=== PATIENT | male | born 1970 | race Caucasian/White ===

== ENCOUNTER → 2017-11-07 | Day surgery (SDC) | payer MEDICARE ==
[~2017-11-07] VITALS: Ht 177.8 cm; Wt 93.9 kg
[~2017-11-07] MED LIST: ACETAMINOPHEN PO; ACETAMINOPHEN325 M2 PO; AMBIEN10 MG PO; AMBIEN5 MG PO; ARTIFICIAL TEAR15 M1 OU; ATIVAN0.5 MG PO; BACLOFEN10 MG PO; BACTROBAN OINT22 GM NAS; BELSOMRA5 MG PO; BISACODYL10 MG; CELEBREX100 MG PO; CLARITIN10 MG PO; CLEOCIN HCL300 MG PO; COLACE100 MG/10; COUMADIN3 M1 PO; COUMADIN6 M1 PO; COUMADIN6 MG PO; DANTRIUM50 MG PO; DEPAKOTE125 MG PO; DILANTIN KAPSE100 MG PEG; DILANTIN100 MG PO; DILANTIN100 MG/4 M PO; DOXYCYCLINE MO100 MG PO; DULCOLAX10 MG R; DUONEB 3 MG/3 ML3 M1 INH; DUONEB 3 MG/3 ML3 M1 NEB; DURAGESIC75 MCG/HR TD; Duoneb 3ML 3 MG/3 ML INH; EFFEXOR75 MG PO; EXEL13.31 TD; FENTANYL TR25 MCG/HR TD; FENTANYL TR50 MCG/HR TD; FLEXERIL10 MG PO; FLORASTOR; FLORASTOR250 MG PO; HYDROCODONE BIT1 T11 PO; KEPPRA250 MG PO; LACRI LUBE1 OIN PEG; LASIX20 MG PO; LASIX40 MG PO; LEVOTHROID0.025 MG PO; LIORESAL10 MG PO; LOPRESSOR PO; Lopressor25 MG PO; MACROBID100 M1 PEG; MIRALAX POWDER17 G1 PO; MIRTAZAPINE15 M2 PO; MOM30 M1; Mysoline50 MG PO; NATURE'S BLEND F1 MG PO; NEXIUM40 MG PO; NORCO 325 MG-7.1 TAB PO; PEPCID20 MG PO; PHENERGAN25 M1 PO; PHENERGAN25 MG/ML IJ; POTASSIUM CHLO20 ME4 PO; PROTONIX40 MG PO; RANITIDINE HCL150 M1 PO; RISPERDAL0.5 MG PO; RISPERDAL2 M1 PO; RITALIN10 MG; ROCEPHIN1 GM IJ; SENOKOT8.6 MG PO; SILAPAP; SYNTHROID0.025 MG PO; TOPROL XL25 MG PO; TORADOL10 MG PO; TYLENOL650 M1 PO; VICODIN 5/500 505 MG; VITAMIN C PO; VITAMIN D50000 IU PO; XANAX0.5 MG PO; ZANTAC150 MG; ZINC SULFATE220 MG PO; ZOLOFT50 MG PO; [UNRECOGNIZED DRUG - OTHER]; [UNRECOGNIZED DRUG - OTHER] OU
--- NOTE | ~2017-11-07 | O ---
[place], [place] OPERATIVE NOTE NAME: BRIANNA VERAS UNIT #: [id number] ROOM: DOCTOR: BLESSING ESTEVEZLAUREN BIRTHDATE: [birth year] DOS: 11/07/2017 INDICATIONS: This patient has had head trauma, status post craniotomy and now dysphagia, unable to swallow and although he is assisted with soft diet in residential and apparently there is difficulties with swallow and choking at times. PAST MEDICAL HISTORY: Status post trauma, otherwise no other systemic illnesses. ALLERGIES: TO BACTRIM, PENICILLIN, ZOFRAN, AND CIPROFLOXACIN. SOCIAL HISTORY: Nonsmoker, nonalcohol consumer. FAMILY HISTORY: Noncontributory. PAST SURGICAL HISTORY: Brain surgery, vein shunt, and ventral hernia repair 8 years ago. PROCEDURE: Today's procedure part of investigation is panendoscopy plus biopsy plus esophageal dilation. PREMEDICATION: Versed and Diprivan. SCOPE: Olympus forward-viewing gastroscope Q10 video. REPORT: After putting the patient in left lateral position and application of lubricant to the scope, the scope was introduced under direct visualization, advanced through the length of esophagus without difficulty. Upper esophageal benign stricture was experienced. Gastric pouch was entered. Small hiatal hernia 2 cm was noticed. Gastritis was noticed photographed. Antral biopsy obtained for H. pylori, duodenal bulb, second and third part within normal limits. The patient was extubated to the proximal gastric pouch. A balloon size 20 was introduced in gastric pouch and in the inflated form was pulled throughout the length of the esophagus, extremely high resistant benign stricture site upper esophagus was experienced. However, we kept the balloon inflated to size 20 and the patient extubated, tolerated procedure well. IMPRESSION: Upper esophageal stricture, status post balloon dilation to size 20, gastritis, status post biopsy. PLAN AND DISCUSSION: This patient is on ranitidine 150 mg b.i.d. He is on Protonix also 40 mg every day. I trust that we do not need H2 manjit in view of the fact the patient is in PPI. We are going to remove the ranitidine from the list and addition of analgesic acid, i.e., extra strength Gaviscon is going to be used 1 at bedtime, antireflux with elevation of the head of the bed, soft diet with miner assistant, to be fed by nursing staff or otherwise assistants and clinical reevaluation. [place], [place] OPERATIVE NOTE NAME: BRIANNA VERAS UNIT #: [id number] ROOM: DOCTOR: BLESSING ESTEVEZ,LAUREN BIRTHDATE: [birth year] LAUREN FUNK MD CM:OPRECORD:OPERATIVE NOTE [id number] ARLEEN FUNK MD 11/07/17 1346 interface
[2017-11-07 10:20] VITALS: BP 111/78
[2017-11-07 11:30] VITALS: BP 109/78
[2017-11-07 11:45] VITALS: BP 120/74
== END | disposition home or self-care (01) ==
LOC: SDC 11-06 14:45
DX: K29.50 Unspecified chronic gastritis without bleeding (principal); K22.2 Esophageal obstruction; Z98.890 Other specified postprocedural states; Z88.8 Allergy status to other drugs, medicaments and biological substances; Z88.0 Allergy status to penicillin; I10 Essential (primary) hypertension; F41.9 Anxiety disorder, unspecified; F32.9 Major depressive disorder, single episode, unspecified; J44.9 Chronic obstructive pulmonary disease, unspecified; Z79.899 Other long term (current) drug therapy

== ENCOUNTER 2017-12-11 08:54 | Inpatient (IN) | payer MEDICARE, OTHER ==
[~2017-12-11] VITALS: Ht 182.9 cm; Wt 105.9 kg
--- NOTE | ~2017-12-11 | WRIGHTHP ---
[place], [place] PATIENT HISTORY AND PHYSICAL EXAM NAME: BRIANNA VERAS [facility] #: [id number] UNIT #: [id number] ROOM: 427 DOCTOR: ARLEEN MONTEIRO MD BIRTHDATE: [birth year] DOS: 12/11/2017 HISTORY OF PRESENT ILLNESS: The patient is 47-year--old, very well known to us. He is a resident of [facility]. He has been getting increasingly weak and tired with more of an obtunded situation. The patient was brought to the emergency room because of hypoxemia and low-grade fever and increased chest congestion. He has had a moist cough. He is unable to cough up any mucus because of his reflux being very poor, but he was again quite sleepy and was difficult to arouse. After being evaluated in the ER, he was admitted. This morning, he is much more awake and alert, almost combative, which is his baseline. His father is with him. As per the father, he seems to be less congested than yesterday. PAST MEDICAL HISTORY: 1. 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 2. CUSTODIAL AIDE shunt placement from history of hydrocephalus. 3. Hypothyroidism. 4. Benign hypertension. 5. Metabolic encephalopathy. 6. Generalized anxiety disorder. MEDICATIONS: He was on were breathing treatments, Tylenol, Xanax, ascorbic acid, baclofen, vitamin D, Depakote, folic acid, Lasix, Galvin, Keppra, levothyroxine, metoprolol, mirtazapine, omeprazole, Dilantin, primidone, Risperdal, Belsomra, fentanyl, Vicodin and rivastigmine. SOCIAL HISTORY: Nonsmoker, is a resident currently of [facility]. He suffers from organic brain syndrome. PHYSICAL EXAMINATION: VITAL SIGNS: Blood pressure is 128/92, pulse 106, respirations 18, temperature 97.6. LUNGS: Diminished breath sounds, scattered wheezes heard bilaterally. HEART: Regular. ABDOMEN: Obese, soft. EXTREMITIES: Trace edema, which is chronic lymphedema. LABORATORY DATA: Phenytoin level is high at 21.0. Valproic acid is low at 25.1. Keppra is normal. WBC count is 4.2, hemoglobin 12.0, hematocrit 26.8, platelets 169. Lactic acid is 1.3. Comprehensive glucose 84, BUN 14, creatinine 0.52. Electrolytes were normal. Chest x-ray showed no pathology. CT of the chest was done after admission showed trace bilateral pleural effusion, diffuse ground glass opacities suggestive of interstitial edema, mucus plugging with a CUSTODIAL AIDE shunt in place with evidence of ____ most likely aspiration. ASSESSMENT AND PLAN: 1. Aspiration pneumonia. The patient is placed on antibiotics. We will ask Dr. Posey to do a bronchoscopy suction of mucus plugs and sent them for culture. 2. Organic brain syndrome. The patient has had a problem with polypharmacy. [place], [place] PATIENT HISTORY AND PHYSICAL EXAM NAME: BRIANNA VERAS UNIT #: [id number] ROOM: 427 DOCTOR: ARLEEN MONTEIRO MD BIRTHDATE: [birth year] Most of his meds will be discontinued and will start anew. 3. History of seizure disorder. I will continue Keppra. We will discontinue Dilantin. He has been taking the Depakote for mood stabilization, which is being discontinued. 4. Hypothyroidism, stable on medicines. 5. Interstitial edema may suggest slight diastolic congestive heart failure. Echocardiogram is ordered. Discussed with the patient's father in detail. ARLEEN MONTEIRO MD CM:HISPHYS:PATIENT HISTORY AND PHYSICAL EXAMINATION [id number] ARLEEN MONTEIRO MD 12/12/17 1032 interface
--- NOTE | ~2017-12-11 | PR ---
[place], [place] PROGRESS NOTE NAME: BRIANNA VERAS [facility] #: [id number] UNIT #: [id number] ROOM: 427 DOCTOR: ARLEEN MONTEIRO MD BIRTHDATE: [birth year] DOS: 12/16/2017 SUBJECTIVE: The patient is about the same, does not have any new changes. OBJECTIVE: VITAL SIGNS: Blood pressure is 130/77, pulse of 97, respirations 16, temperature 98.8. LUNGS: Diminished breath sounds. HEART: Regular, tachycardic. ABDOMEN: Obese. EXTREMITIES: Without any edema, contracted extremities. ASSESSMENT AND PLAN: 1. 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 No new changes. 2. Sputum cultures with Proteus mirabilis, on Levaquin. We can switch to p.o. and discharge him back. 3. Aspiration pneumonia and failed modified barium swallow for which the patient underwent PEG tube and is tolerating it. The patient is relatively stable. The plan [facility]. ARLEEN MONTEIRO MD CM:PNTRANS [id number] ARLEEN MONTEIRO MD 12/17/17 0601 interface
--- NOTE | ~2017-12-11 | PROC NOTE ---
[place], [place] PROCEDURE NOTE NAME: BRIANNA VERAS UNIT #: [id number] ROOM: 427 DOCTOR: HUMA MORTON BIRTHDATE: [birth year] DOS: 12/12/2017 MODIFIED BARIUM SWALLOW LOCATION: [facility], room 427, bed 1. ORDERING PHYSICIAN: Dr. Arenas. RADIOLOGIST: Dr. Hernandez. BACKGROUND INFORMATION: A 47-year-old male was seen for modified barium swallow. This test was ordered to rule out aspiration. [facility] and diagnosed with pneumonia, aspiration is suspected. Further medical history includes traumatic brain injury approximately 8 years ago, seizures, anxiety, depression, GERD, and UTI. The patient was sent to the emergency room after experiencing lethargy and cough at the [facility]. Reports indicate that patient had been eating a soft diet at the [facility]. He also underwent esophageal dilation about 3 weeks ago. The patient is currently n.p.o. For today's assessment, he was alert and agitated. He was restless and with frequent tremor. Clinician attempted to calm the patient explaining what would occur during the procedure. It is uncertain if the patient understood this information or not. This patient is nonverbal and unable to follow commands. METHODS AND MATERIALS USED FOR THE EXAM: The patient was positioned in the lateral plane and the exam was attempted under fluoroscopy. Applesauce mixed with barium was attempted. ORAL PHASE: This phase of the swallow was unable to be assessed due to patient's refusal of p.o. intake. Encouragement was given. The patient refused and was becoming combative. The patient did not accept presentations given; therefore, test was terminated. PHARYNGEAL PHASE: Unable to assess. IMPRESSION AND RECOMMENDATIONS: The patient refused any oral intake at this time. When seen this morning during a bedside swallowing evaluation, the patient again refused any presentation from the clinician. The patient's father was present and attempted to feed the patient. With encouragement, he did accept a couple of bites from his father, however, was not noted to be swallowing anything given. It was recommended that feeding stop at this point. Due to current status, n.p.o. is recommended for safety. Followup therapy is recommended for continued attempts to assess swallowing safety. Results and recommendations were shared with the patient's nurse who verbalized understanding. Thank you very much for this referral. Should you have any questions regarding this patient, please contact the speech pathologist at [phone]. [place], [place] PROCEDURE NOTE NAME: BRIANNA VERAS UNIT #: [id number] ROOM: [facility] DOCTOR: HUMA MORTON BIRTHDATE: [birth year] HUMA MORTON CM:PROCNOTE:PROCEDURE NOTE [id number] HUMA MORTON
--- NOTE | ~2017-12-11 | PR ---
[place], [place] PROGRESS NOTE NAME: BRIANNA VERAS [facility] #: [id number] UNIT #: [id number] ROOM: 427 DOCTOR: ARLEEN MONTEIRO MD BIRTHDATE: [birth year] DOS: 12/13/2017 SUBJECTIVE: The patient is seen in the OR, slightly restless and tachycardic. He has been n.p.o. for the procedure and has not received his beta blockers. OBJECTIVE: VITAL SIGNS: Graphic trend shows a pressure of 130/62, pulse of 118, respirations 20, temperature 99.0, T-max of 99.8. LUNGS: Diminished breath sounds, few scattered wheezes. HEART: Tachycardic. ABDOMEN: Obese, soft. EXTREMITIES: Without much edema today. LABORATORY DATA: WBC count is 8.9, hemoglobin 13.1, hematocrit , platelets 217. BMP: Glucose 90, BUN 11, creatinine 0.72. Electrolytes were normal. MRSA of the nares was negative. Thyroid function test was normal. ASSESSMENT AND PLAN: 1. Aspiration pneumonia. Awaiting a bronchoscopy. 2. Tachycardia, most likely from anxiety, given the Lopressor dose this morning since he has not received his Lopressor for more than 24 hours. 3. Failed modified barium swallow. We will discuss with the patient's father about PEG tube placement because he is a high risk for further aspiration. 4. History of traumatic brain injury with organic brain syndrome and MRI will be done to make sure that the GARMENT TAG STRINGER shunt is functioning well. ARLEEN MONTEIRO MD CM:PNTRANS 1 [phone] ARLEEN MONTEIRO MD 12/13/17 1226 interface
--- NOTE | ~2017-12-11 | PR ---
[place], [place] PROGRESS NOTE NAME: BRIANNA VERAS UNIT #: [id number] ROOM: 427 DOCTOR: CESAR AN MD,MATEUS BIRTHDATE: [birth year] DOS: 12/13/2017 SUBJECTIVE: The patient was noted essentially the same with chest congestion. Mentally patient noted awake, but does not follow vocal commands with history of traumatic brain injury. He has not been noted any hemodynamic instability, has not been noted with symptoms of diarrhea as well. Remaining systems for the patient could not review this patient because of the current neurologic status. He is kept n.p.o. past midnight. Bronchoscopy to be done today. OBJECTIVE: VITAL SIGNS: Shows normal temperature, respiratory rate 14, heart rate 110, blood pressure of 114/77-124/89. Pulse oxygen saturation recorded on 3 liters nasal cannula 93% saturation. HEENT: Moderate obesity. Head was atraumatic. Eyes nonicterus or tracheostomy scar noted at base of the neck. CARDIOVASCULAR: S1, S2 is audible. LUNGS: The patient noted with [id number] decreased breath sounds bilaterally. ABDOMEN: Soft, nontender. EXTREMITIES: The patient without any edema. MUSCULOSKELETAL: No acute deformities. VISIBLE SKIN: No lesions or rashes. CENTRAL NERVOUS SYSTEM: Change in mental status, traumatic brain injury and bedbound status. LABORATORY DATA: Blood culture on showed no bacterial growths. The BMP for this patient that were done today was noted essentially completely normal. CBC this morning: WBC count normal, hemoglobin 13.1, platelet count was normal. IMPRESSION: 1. The patient who has been currently noted with findings of acute pneumonia with the mucus impaction of the airways, especially right lower lobe. 2. Chronic traumatic brain injury. The patient is bedbound status. 3. Metabolic alkalosis which is chronic as well, mostly second hypoventilation would be considered. 4. History of hypothyroidism. PLAN OF TREATMENT: Proceed with the bronchoscopy as planned. Any changes or modification of treatment if necessary will be done after the bronchoscopy. Other supportive therapy, plan of management to be continued as well. Usual treatment, all other care and therapies. Supportive plan of management as well. [place], [place] PROGRESS NOTE NAME: BRIANNA VERAS UNIT #: [id number] ROOM: 427 DOCTOR: MATEUS HERRERA MD BIRTHDATE: [birth year] MATEUS GUERRERO MD CM:PNTRANS [phone] MATEUS AN MD 12/13/17 1511 interface
--- NOTE | ~2017-12-11 | PR ---
[place], [place] PROGRESS NOTE NAME: BRIANNA VERAS UNIT #: [id number] ROOM: 427 DOCTOR: MATEUS HERRERA MD BIRTHDATE: [birth year] DOS: 12/16/2017 PULMONARY PROGRESS NOTE SUBJECTIVE: He has noted comfortable without acute distress. He was planned for possible discharge today. He has not been noted any symptoms of hemodynamic instability. The patient has not been noted any ongoing acute other changes at the present time. The patient noted awake and alert this morning. PHYSICAL EXAMINATION: VITAL SIGNS: Normal temperature, respiratory rate of 17, heart rate of 118, blood pressure 110/80, and pulse oxygen saturation on 2 liters nasal cannula 93% saturation. HEENT: On examination, head was atraumatic. Eyes nonicterus. NECK: Supple. CARDIOVASCULAR: S1, S2 audible. LUNGS: The patient was noted without any acute abnormality. NECK: Supple. CARDIOVASCULAR: S1, S2 audible. LUNGS: The patient noted without any wheeze or crackles. ABDOMEN: Soft, nontender. EXTREMITIES: Without any acute edema. CENTRAL NERVOUS SYSTEM: Remains unchanged. IMPRESSION: 1. The patient with resolving acute pneumonia, gram-negative infection with aspiration, status post bronchoscopy. 2. 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 PLAN OF MANAGEMENT: The patient could be discharged home on oral medication based on the sensitivity results. Other supportive plan of management to be continued as well. Possibility for the patient would be [facility] the [facility] management of tracheal stenosis. [place], [place] PROGRESS NOTE NAME: BRIANNA VERAS UNIT #: [id number] ROOM: 427 DOCTOR: MATEUS HERRERA MD BIRTHDATE: [birth year] MATEUS GUERRERO MD CM:PNTRANS 1331 0125 MATEUS AN MD 12/17/17 0124 interface
--- NOTE | ~2017-12-11 | CON ---
[place], [place] REPORT OF CONSULTATION NAME: BRIANNA VERAS [facility] #: [id number] UNIT #: [id number] ROOM: 427 DOCTOR: MATEUS HERRERA MD BIRTHDATE: [birth year] DOS: 12/12/2017 CONSULTATION REQUESTED BY: Dr. Karlee Arenas. REASON FOR CONSULTATION: For assessment of possible bronchoscopy. HISTORY OF PRESENT ILLNESS: This is 47-year-old white male, who was seen on 12/12/2017. The patient has been noted history of long-term assisted resident with history of traumatic brain injury. The patient has been admitted in the hospital. The patient has been noted progressive weakness and fatigue with mental status changes. He has been brought to the Emergency Room and noted with acute hypoxia with increased chest congestion and low grade fever. The coughing has been noted moist. The patient is unable to give any history at this time. The history was obtained from review of medical records by Dr. Karlee Arenas and also the medical record of the patient, also rather discussing the case with the patient's father. At this time, the patient has been in the hospital, at the time of assessment noted with chest congestion. The patient unable to expectorate any sputum as well. REVIEW OF SYSTEMS: Could not be completed as the patient was noted with change in mental status, which is chronic with history of traumatic brain injury. PAST MEDICAL HISTORY: 1. History of traumatic brain injury. 2. Seizures. 3. History of hydrocephalus, PRODUCER ARBORIST MANAGER shunt in place. 4. Hypothyroidism. 5. Moderate obesity. 6. Benign essential hypertension. 7. Generalized anxiety disorder. 8. History of deep venous thrombosis, previously. 9. Muscle wasting. 10. Atrophy. 11. History of hypothyroidism. SOCIAL HISTORY: The patient noted nonsmoker lifetime. There is no history of alcohol use, illicit drug use reported previously. FAMILY HISTORY: Noncontributory. PAST SURGICAL HISTORY: 1. Reported as a vasectomy. 2. Surgery on the right knee. 3. Hernia repair. CURRENT MEDICATION: Administered noted use of DuoNeb with the nebulizer, Exelon patch, zinc sulfate, folic acid, vitamin D, omeprazole, primidone, Remeron, metoprolol tartrate, levothyroxine, Keppra, Lasix, baclofen, Rocephin and Levaquin. [place], [place] REPORT OF CONSULTATION NAME: BRIANNA VERAS UNIT #: [id number] ROOM: 427 DOCTOR: CESAR AN MD,MATEUS BIRTHDATE: [birth year] DRUG ALLERGY HISTORY: Noted with allergy: 1. PENICILLIN. 2. SULFA DRUGS. 3. CIPROFLOXACIN. 4. ZOFRAN. PHYSICAL EXAMINATION: GENERAL: The patient is a 47-year-old male, who has been noted with chest congestion, but no distress, noted awake. VITAL SIGNS: Height of 6 feet, weight of 233 pounds, BMI 31.6. The patient was noted nonverbal. VITAL SIGNS: Normal temperature, respiratory rate 18-20, heart rate 94-106, blood pressure 128/92-140/85. The pulse oxygen saturation on room air was 91% saturation. HEENT: The patient with moderate obesity. Head was atraumatic. Eyes nonicterus. CARDIOVASCULAR: S1, S2 is audible. LUNGS: The patient noted with moderate reduction of the breath sounds. The patient was noted with rhonchorous breathing. ABDOMEN: Soft, nontender. EXTREMITIES: The patient was noted with partial contracture. SKIN: Visible skin, no lesions or rashes. CENTRAL NERVOUS SYSTEM: The patient could not be performed because of the current neurologic problems. LABORATORY DATA: Keppra level was done as an outpatient normal at 20.6. CBC, yesterday on admission was noted as WBC count normal, hemoglobin 13.1, hematocrit 39.6, platelet count were normal. The CMP 522. Normal BUN and creatinine. CO2 33. Chest x-ray, limited view because of portable access without any acute pulmonary infiltration visible. CT scan of the chest, which was done without contrast ordered by Dr. Karlee Arenas, was reviewed shows interstitial edema was also noted with basilar area of infiltration with possibility of mucus impaction of the major airways in the lower lungs. IMPRESSION: 1. The patient will be currently admitted to the hospital. The patient was suspected acute pneumonia with mucous impaction major airways retained secretions, inability to expectorate a current neurologic issues. 2. History of chronic traumatic brain injury for the patient as well. 3. Metabolic alkalosis which appeared to be chronic. 4. History of hypothyroidism and other medical problems as previously reported in the past history. PLAN OF TREATMENT: Continuation of bronchodilators, oxygen supplementation and other medical treatment. The bronchoscopy was planned to be done tomorrow. Risk and benefits were discussed with the patient's father and the consent was obtained for the bronchoscopy. N.p.o. past midnight status will be achieved. Additional treatment changes to be suggested for the patient based on progression of the illness. Usual care, other supportive therapy, plan of management and treatments. [place], [place] REPORT OF CONSULTATION NAME: BRIANNA VERAS UNIT #: [id number] ROOM: [facility] DOCTOR: MATEUS HERRERA MD BIRTHDATE: [birth year] MATEUS GUERRERO MD CM:CONSTR:REPORT OF CONSULTATION 1705 12/13/17 0405 interface
--- NOTE | ~2017-12-11 | EKG ---
[place], [place] ELECTROCARDIOGRAM REPORT NAME: BRIANNA VERAS UNIT #: [id number] ROOM: 427 DOCTOR: CESAR AN MD,MATEUS BIRTHDATE: [birth year] DOS: 12/11/2017 ELECTROCARDIOGRAM REPORT TIME: 02:23 p.m. The electrocardiogram shows evidence of mild sinus tachycardia, heart rate of 107 beats per minute. MATEUS GUERRERO MD CM:EKGRPT:ELECTROCARDIOGRAM REPORT 1435 1449 MATEUS AN MD
--- NOTE | ~2017-12-11 | PR ---
[place], [place] PROGRESS NOTE NAME: BRIANNA VERAS [facility] #: [id number] UNIT #: [id number] ROOM: 427 DOCTOR: CSEAR AN MD,MATEUS BIRTHDATE: [birth year] DOS: 12/15/2017 SUBJECTIVE: The patient has been continued on the current plan of treatment. Remains stable without any excessive coughing, sputum expectoration or any chest pain or other symptoms were reported. The patient orally was noted nonverbal, has not been noted any hemodynamic instability. He had not been noted any symptoms of any diarrhea. The review of systems could not be performed due to the patient's current neurologic status. The patient with past traumatic brain injury, inability to communicate verbally. He was comfortably resting at this time on the bed. PHYSICAL EXAMINATION: VITAL SIGNS: The patient shows temperature noted as normal, respiratory rate of 18, heart rate 72, blood pressure 129/77-109/73. Intake for the patient recorded ____ 150 mL without Bee catheter. Pulse ox saturation is 3 liters nasal cannula was 92% saturation. HEENT: Moderate obese. Head was atraumatic. Eyes nonicterus. CARDIOVASCULAR: S1, S2 audible. LUNGS: Without any wheezing or crackles at the present time. ABDOMEN: Soft, nontender. EXTREMITIES: The patient noted chronic obesity. MUSCULOSKELETAL: The patient without any acute deformities. SKIN: No lesions or rashes. GENITOURINARY: Chronic traumatic brain injury. LABORATORY DATA: BMP this morning: BUN normal, creatinine was normal, sodium 146, and potassium 3.3. Culture of the bronchial washing was noted with evidence of Proteus mirabilis, which was sensitive to multiple antibiotics for the patient and only resistant noted tetracycline. Chest x-ray of the patient that was done this morning reviewed does not show any acute pulmonary abnormalities. IMPRESSION: 1. The patient who has been currently noted with chronic traumatic brain injury with present change in mental status, status post bronchoscopy for the patient as well. 2. Acute tracheobronchitis. The patient was also noted with Proteus mirabilis. PLAN OF MANAGEMENT: Discontinuation of the IV Rocephin and continuation of the Levaquin for the patient possibly in another 5 days to complete the therapy for acute tracheobronchitis. Clinically, the patient has been improving as well. Usual care. Other supportive plan of management and treatment. Plan of care. [place], [place] PROGRESS NOTE NAME: BRIANNA VERAS UNIT #: [id number] ROOM: 427 DOCTOR: MATEUS HERRERA MD BIRTHDATE: [birth year] MATEUS GUERRERO MD CM:PNDIANA 1522 [id number] MATEUS AN MD 12/15/17 1755 interface
--- NOTE | ~2017-12-11 | PR ---
[place], [place] [facility]ESS NOTE [id number] UN[facility] #: [id number] ROOM: 427 DOCTOR: ARLENE MONTEIRO MD BIRTHDATE: [birth year] DOS: SUBJECTIVE: The patient is about the same. His eyes are wide open. He follows few but otherwise does not respond. OBJECTIVE: VITAL SIGNS: Graphic trend shows pressure 115/79, pulse of 90, respirations 18, temperature 98.0, T-max of 100.4 at 1600 yesterday. LUNGS: Diminished breath sounds, some rhonchi in upper chest noted. HEART: Regular. ABDOMEN: Obese. PEG in place. EXTREMITIES: Without any edema. CT of the neck does not show any abnormalities. 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 ASSESSMENT AND PLAN: 1. Aspiration pneumonia, status post PEG tube placement, currently on feeding, tolerating it. 2. Hypokalemia. Supplementation will be ordered. Add water to the PEG. 3. Bronchoscopy cultures revealed Proteus mirabilis, which is sensitive to Rocephin and ____ which he is already on. His IV site infiltrated. We will place a PICC line this morning. The [facility] 4. Organic brain syndrome with agitation. Risperdal will be restarted. ARLEEN MONTEIRO MD CM:PNTRANS [id number] ARLEEN MONTEIRO MD 12/15/17 1125 interface
--- NOTE | ~2017-12-11 | PR ---
[place], [place] PROGRESS NOTE NAME: BRIANNA VERAS UNIT #: [id number] ROOM: 427 DOCTOR: ARLEEN MONTEIRO MD BIRTHDATE: [birth year] DOS: SUBJECTIVE: The patient is agitated this morning because he just came back from the CAT scan. He is not having any new problems. OBJECTIVE: VITAL SIGNS: Graphic trend shows a pressure of 130/80, pulse of 90, respirations 18, temperature 99.5. T-max was 100.7. LUNGS: Diminished breath sounds, fairly clear. HEART: Regular. ABDOMEN: Obese, soft. EXTREMITIES: Trace edema. LABORATORY DATA: Urine draining clear. Routine culture of the bronch specimen showed moderate gram-negative bacteria. His blood culture shows no bacterial growth. ASSESSMENT AND PLAN: 1. The patient with aspiration pneumonia, on IV antibiotics, awaiting completion of the sputum culture and then we will decide on changes in antibiotic regimen. 2. The patient is having difficulty swallowing. A CT of the neck is ordered, but he is scheduled for a PEG tube placement. 3. 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 We will restart some of his old medications. ARLEEN MONTEIRO MD CM:PNDIANA [phone] ARLEEN MONTEIRO MD 12/14/17 1646 interface
--- NOTE | ~2017-12-11 | PR ---
[place], [place] PROGRESS NOTE [id number] UNIT #: [id number] ROOM: 427 DOCTOR: CESAR AN MD,MATEUS BIRTHDATE: [birth year] DOS: 12/14/2017 PULMONARY PROGRESS NOTE SUBJECTIVE: He has been noted comfortable at this time, resting on the bed without any acute distress. The patient has not been noted any further symptoms of cough after bronchoscopy. He had not been noted any symptoms of hemodynamic instability, tachycardia. The patient noted awake and noted expressive aphasia. The patient's father was present in the room with the patient as well. The bronchoscopy resulted in reduction of coughing and chest congestion. REVIEW OF SYSTEMS: Could not be completed. PHYSICAL EXAMINATION: VITAL SIGNS: The temperature noted low grade 100.2 degrees Fahrenheit, normal temperature, respiratory rate of 16-17, heart rate of 94-96, blood pressure 110/55-97/76. The pulse oxygen saturation on 2 liters nasal cannula 94% saturation recorded. HEENT: Moderate obesity. Head was atraumatic. Eyes nonicterus. NECK: Previous tracheostomy scar noted in the neck. CARDIOVASCULAR: S1, S2 audible. LUNGS: The patient was noted without any wheezing or crackles today. ABDOMEN: Soft, nontender. Bowel sounds present. EXTREMITIES: Without any acute edema. CENTRAL NERVOUS SYSTEM: Unchanged with a traumatic brain injury. VISIBLE SKIN: No lesions or rashes. MUSCULOSKELETAL SYMPTOMS: Without any acute deformities. LABORATORY DATA: CT scan of the neck, which was ordered for the patient yesterday does not include the part of trachea. So, the examination was not helpful for the patient for further assessment. The gram stain of the bronchial washing was noted many white blood cells with many epithelial cells, few gram-positive cocci in pairs and clusters with gram-negative bacilli. Cultures of the bronchial washing were noted moderate growth of gram-negative bacilli, preliminary with final culture results remain pending. IMPRESSION: 1. 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 2. Acute pneumonia, gram-negative bacilli as well. Reduction in symptoms of coughing. 3. History of chronic traumatic brain injury was noted as well. PLAN OF MANAGEMENT: No changes in the plan of care. Monitor culture results and make adjustment in antibiotics accordingly. Continue the previous medications as previously. Referral for the patient [facility] and assessment. In the meantime, other supportive therapy, plan of management. The CT scan of chest was done on 12/11/2017 shows evidence of tracheal stenosis ____ for this patient, which was demonstrated exactly with the bronchoscopy. Continue in the meantime, other [place], [place] PROGRESS NOTE NAME: BRIANNA VERAS UNIT #: [id number] ROOM: 427 DOCTOR: CESAR AN MD,MATEUS BIRTHDATE: [birth year] plan of therapy, care plan and management and other treatment. Usual care. Supportive care and other therapies. MATEUS GUERRERO MD CM:PNTRANS [id number] MATEUS AN MD 12/15/17 0138 interface
--- NOTE | ~2017-12-11 | PROC NOTE ---
[place], [place] PROCEDURE NOTE NAME: BRIANNA VERAS UNIT #: [id number] ROOM: 427 DOCTOR: CESAR AN MD,MATEUS BIRTHDATE: [birth year] DOS: 12/13/2017 PREOPERATIVE DIAGNOSES: The patient with a mucus impaction, chest congestion, coughing, and pneumonia with history of traumatic brain injury, inability to clear of secretions. POSTOPERATIVE DIAGNOSES: 1. Removal of significant amount of mucus. Endobronchial tree bilaterally, the patient with impacted mucus plug and some purulent secretions as well in the right lower lobe endobronchial tree. 2. Evidence of stenosis noted in the proximal trachea may be related to the past tracheostomy, etiology or other reason. PROCEDURE DESCRIPTION: Informed consent obtained from the patient and family members. The patient brought to the OR and placed in supine position. Conscious sedation was administered by the Anesthesia Department. After achieving proper sedation, airway introduced into the mouth. Bronchoscope advanced to the airway into laryngeal area. Epiglottis and vocal cords were seen. Vocal noted yellowish in color moving symmetrical movement. Bronchoscope entered vocal cord, tracheal lumen. At about approximately 2.5 cm, there is a narrowing of the trachea noted for this patient. By the bronchoscope able to pass through the trachea current stenosis. Remaining tracheal lumen were noted patent distally. Small amount of secretion present in the tracheal lumen, which was suctioned out. Sherry noted sharp. Right upper, right middle, right lower, left upper, lingular lower lobe bronchi were all examined. The endobronchial secretion removed from the endobronchial tree without difficulty including mucus plug and purulent secretion in the right lower lobe. Procedure well tolerated by the patient without difficulty. Postoperative findings were discussed with the patient's father. CT scan of the neck will be done tomorrow morning without contrast to further assess the current abnormal findings. MATEUS GUERRERO MD CM:PROCNOTE:PROCEDURE NOTE [id number] MATEUS AN MD
--- NOTE | ~2017-12-11 | DS ---
[place], [place] DISCHARGE SUMMARY NAME: BRIANNA VERAS [facility] #: [id number] UNIT #: [id number] ROOM: 427 DOCTOR: ARLEEN MONTEIRO MD BIRTHDATE: [birth year] DOS: HOSPITAL COURSE: The patient is 47-year-old, very well known to us. The patient was brought to the emergency with increased congestion in his chest and low grade fever. Please refer to H and P for details. After admission, the patient was found to have a moist sounding cough and thought to be aspirating. A CT of the chest was done, which confirmed the diagnosis. Aspiration pneumonia was noted. The patient was placed on antibiotics. Dr. Posey was consulted on bronchoscopy. Bronchoscopy cultures grew Proteus mirabilis, which is sensitive to ____. The patient appeared obtunded and lethargic from polypharmacy. Medication adjustments were made. He is more awake and alert and less agitated during the stay here. Condition was discussed with family members and they agreed for PEG tube placement, which was done, tolerated the procedure and the patient is getting PEG tube feedings without any issues. A CT of the neck did not show any evidence of obstructive disease. He does have a history of traumatic injury and the BUSINESS ASST shunt seems to be working as seen on CT scans of the chest, no MRI was performed because he has a programmable BUSINESS ASST and the MRI should be done where a neurosurgery team can see him and the BUSINESS ASST shunt can be programmed post-MRI. This was discussed with the alf staff. The patient is relatively stable this morning. The plan is to discharge him. DISCHARGE DIAGNOSES: 1. Aspiration pneumonia. 2. PEG tube placement. 3. 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 4. Polypharmacy. 5. Generalized anxiety disorder. 6. Chronic pain. DISCHARGE MEDICATIONS: Cipro 500 mg twice a day for 7 days; baclofen 10 t.i.d.; Keppra 500 b.i.d.; levothyroxine 25 mcg daily, this medicine has to be given in the morning; metoprolol 25 b.i.d.; Senokot 8.6 daily; zinc sulfate 220 daily; MiraLax 17 grams daily p.r.n.; DuoNeb t.i.d. p.r.n. for shortness of breath; mirtazapine 15 at bedtime; primidone 50 b.i.d.; Lasix 40 daily p.r.n.; folic acid 1 mg daily; Risperdal 2 mg at bedtime; rivastigmine 13.3 patch daily; Tylenol 650 q. 6 hours p.r.n. for pain; Fentanyl 25 mcg daily; vitamin C 500 mg daily; Gaviscon liquid p.r.n. 254 mL at bedtime p.r.n.; omeprazole 20 daily; Osmolite at 30 mL an hour, please advance as the patient tolerates it; KCl 10 daily for 5 days. [place], [place] DISCHARGE SUMMARY NAME: BRIANNA VERAS UNIT #: [id number] ROOM: 427 DOCTOR: ARLEEN MONTEIRO MD BIRTHDATE: [birth year] ARLEEN MONTEIRO MD CM:GLORIA [phone] ARLEEN MONTEIRO MD 12/16/17 1201 interface
--- NOTE | ~2017-12-11 | O ---
[place], [place] OPERATIVE NOTE NAME: BRIANNA VERAS UNIT #: [id number] ROOM: 427 DOCTOR: BLESSING ESTEVEZLAUREN BIRTHDATE: [birth year] DOS: 12/14/2017 GASTROENDOSCOPIC REPORT HISTORY OF PRESENT ILLNESS: This 47-year-old patient was presented with head trauma status post history of seizure, neurogenic dysphagia, traumatic brain injury. PAST MEDICAL HISTORY: Also associated with hypothyroidism, moderate obesity, essential hypertension, bedridden, atrophy of muscles of the extremities, seizure disorder. PAST SURGICAL HISTORY: Skull post traumatic, vasectomy, and hernia repairs. MEDICATIONS: List has been reviewed. He has been on omeprazole 20 mg per day amongst other medicine. PROCEDURE: Today's procedure part of investigation is panendoscopy plus PEG tube placement. PREMEDICATION: Propofol. SCOPE: Olympus forward-viewing gastroscope Q10 video. REPORT: After putting the patient in supine position, Olympus forward-viewing gastroscope was introduced through the length of esophagus, into gastric pouch, into towards the antrum. Hemorrhagic antritis was noticed. Duodenal bulb, second and third part, retained bile was noticed and suctioned out. The anterior abdominal wall aseptically was prepped, the point of best transillumination site and subxiphoid leaning toward the left was identified, 2 mL Xylocaine was injected. Trocar was then introduced in same spot. Guidewire was advanced through the center of which grasped with forceps internally and orally extracted. Gastrostomy tube Uzbek-20 was anchored to it, antibiotic Neosporin was used on the PEG tube shaft and appropriately positioned. Anchors placed, patency checked, photographic series obtained, tolerated the procedure well. Impression, is hemorrhagic antritis status post EGD, biopsy, and placement of PEG tube. IMPRESSION: Neurogenic dysphagia, status post head trauma, status post EGD and PEG plus biopsy. PLAN AND DISCUSSION: Omeprazole 20 mg apparently is not helping this gentleman. We are going to increase the omeprazole to 40 mg daily. While he is here, we are going to discuss with the family to keep his head of the bed elevated at least 10 inches all time and feeding is going to start Osmolite 1.2 at 30 mL per hour today and will increase to 50 target goal tomorrow, and clinical reassessment. Water flushes at 40 mL per hour is recommended. Thank you very much indeed. [place], [place] OPERATIVE NOTE NAME: BRIANNA VERAS UNIT #: [id number] ROOM: [facility] DOCTOR: LAUREN FUNK MD BIRTHDATE: [birth year] LAUREN FUNK MD CM:OPRECORD:OPERATIVE NOTE [id number] LAUREN FUNK MD 12/14/17 1629 interface
[~2017-12-11 08:54] MED LIST changes: -VITAMIN D50000 IU PO; +VITAMIN D50000 UNIT PO
[2017-12-11 08:55] VITALS: BP 110/83
[2017-12-11 09:39] LABS: BASO % 0.2 % (0.0-1.0); EOS # 0.1 10*3/uL (0.0-0.4); EOS % 2.4 % (1.0-4.0); HEMATOCRIT 39.6 % (42.0-52.0); HEMOGLOBIN 13.1 g/dl (14.0-18.0); LYMPH # 1.5 10*3/uL (1.3-4.4); MEAN CELL VOLUME 97.5 fl (80.0-94.0); MEAN CORPUSCULAR HGB 32.3 pg (27.0-31.0); MEAN CORPUSCULAR HGB CONC 33.1 g/dl (33.0-37.0); MEAN PLATELET VOLUME 10.7 fl (9.6-12.3); MONO # 0.5 10*3/uL (0.1-1.0); MONO % 9.1 % (3.0-9.0); NEUT # 2.8 10*3/uL (2.3-7.9); NEUT % 56.9 % (47.0-73.0); PLATELET COUNT AUTOMATED 168 10*3/uL (130-400); RED BLOOD COUNT 4.06 10*6/uL (4.50-5.90); RED CELL DISTRI WIDTH 13.8 % (0-14.5); WHITE BLOOD COUNT 4.9 10*3/uL (4.8-10.8)
[2017-12-11 09:56] LABS: ALBUMIN 2.8 gm/dl (3.1-4.5); ALKALINE PHOSPHATASE 127 U/L (45-117); BUN 14 mg/dl (7-24); CHLORIDE 103 mmol/L (98-107); CREATININE 0.52 mg/dL (0.70-1.30); POTASSIUM 4.3 mmol/L (3.5-5.1); SGOT/AST 21 IU/L (3-35); SGPT/ALT 27 U/L (12-78); SODIUM 143 mmol/L (136-145); TOTAL PROTEIN 6.8 gm/dL (6.4-8.2)
[2017-12-11 10:27] VITALS: BP 114/68
[2017-12-11 12:00] VITALS: BP 114/68
[2017-12-11] MEDS ORDERED: VITAMIN C500 M8 PO (12:54)
[2017-12-11] MEDS ORDERED: GAVISCON LIQUI355 ML PO (13:02)
[2017-12-11] MEDS ORDERED: OMEPRAZOLE D/R20 MG PO (13:52)
[2017-12-11 16:00] VITALS: BP 116/70
[2017-12-11 20:00] VITALS: BP 152/107
[2017-12-11 22:00] VITALS: BP 128/87
[2017-12-12 00:23] VITALS: BP 128/92
[2017-12-12 06:54] LABS: THYROXINE (T4) TOTAL 5.6 ug/dl (4.5-12.1)
[2017-12-12 06:58] LABS: THYROID STIM HORMONE (HS) 4.41 uIU/ml (0.358-4.75)
[2017-12-12 08:00] VITALS: BP 140/85
[2017-12-12 11:53] LABS: ACT PARTIAL THROMBO TIME 34.2 SECONDS (20.8-31.5); INTERNATIONAL NORM RATIO 1.1 (2.0-3.5)
[2017-12-12 12:00] VITALS: BP 142/88
[2017-12-12 16:00] VITALS: BP 144/88
[2017-12-12 20:00] VITALS: BP 111/70
[2017-12-13] VITALS (10 sets, daily range): BP systolic 95–130; BP diastolic 55–92
[2017-12-13 07:39] LABS: BASO % 0.3 % (0.0-1.0); EOS % 0.3 % (1.0-4.0); HEMATOCRIT 39.7 % (42.0-52.0); HEMOGLOBIN 13.1 g/dl (14.0-18.0); LYMPH # 1.8 10*3/uL (1.3-4.4); LYMPH % 20.1 % (27.0-41.0); MEAN CELL VOLUME 96.6 fl (80.0-94.0); MEAN CORPUSCULAR HGB 31.9 pg (27.0-31.0); MEAN PLATELET VOLUME 10.8 fl (9.6-12.3); MONO % 11.4 % (3.0-9.0); NEUT % 67.6 % (47.0-73.0); PLATELET COUNT AUTOMATED 217 10*3/uL (130-400); RED BLOOD COUNT 4.11 10*6/uL (4.50-5.90); WHITE BLOOD COUNT 8.9 10*3/uL (4.8-10.8)
[2017-12-13 07:49] LABS: BUN 11 mg/dl (7-24); CHLORIDE 103 mmol/L (98-107); CREATININE 0.72 mg/dL (0.70-1.30); POTASSIUM 3.8 mmol/L (3.5-5.1); SODIUM 143 mmol/L (136-145)
[2017-12-14] VITALS (9 sets, daily range): BP systolic 97–169; BP diastolic 51–131
[2017-12-14 14:09] LABS: ACID FAST SPEC PROCESSING Concentration (.)
[2017-12-15] VITALS: BP 118/71
[2017-12-15 06:13] LABS: BASO % 0.4 % (0.0-1.0); EOS # 0.1 10*3/uL (0.0-0.4); EOS % 0.8 % (1.0-4.0); HEMATOCRIT 35.5 % (42.0-52.0); HEMOGLOBIN 11.6 g/dl (14.0-18.0); LYMPH # 1.8 10*3/uL (1.3-4.4); LYMPH % 23.1 % (27.0-41.0); MEAN CORPUSCULAR HGB 31.7 pg (27.0-31.0); MEAN CORPUSCULAR HGB CONC 32.7 g/dl (33.0-37.0); MEAN PLATELET VOLUME 10.5 fl (9.6-12.3); MONO # 1.1 10*3/uL (0.1-1.0); MONO % 14.3 % (3.0-9.0); NEUT # 4.6 10*3/uL (2.3-7.9); NEUT % 60.5 % (47.0-73.0); PLATELET COUNT AUTOMATED 196 10*3/uL (130-400); RED BLOOD COUNT 3.66 10*6/uL (4.50-5.90); RED CELL DISTRI WIDTH 13.7 % (0-14.5); WHITE BLOOD COUNT 7.6 10*3/uL (4.8-10.8)
[2017-12-15 06:23] LABS: BUN 8 mg/dl (7-24); CHLORIDE 108 mmol/L (98-107); POTASSIUM 3.3 mmol/L (3.5-5.1); SODIUM 146 mmol/L (136-145)
[2017-12-15 06:28] LABS: CREATININE 0.57 mg/dL (0.70-1.30)
[2017-12-15 08:00] VITALS: BP 129/77
[2017-12-15 12:00] VITALS: BP 109/73
[2017-12-15 16:00] VITALS: BP 114/75
[2017-12-15 20:00] VITALS: BP 111/70
[2017-12-16] VITALS: BP 130/77
[2017-12-16 08:00] VITALS: BP 110/80
== END 2017-12-16 10:30 | disposition other institution (70) | DRG 177 ==
LOC: ED 08:54 → 4E 10:29 → EDHOLD 10:29 → 4E 10:38
PROVIDERS: Internal Medicine; Internal Medicine Critical Care Medicine; Student in an Organized Health Care Education/Training Program
PROC: BD1BYZZ Fluoroscopy of Mouth/Oropharynx using Other Contrast (ICD-10-PCS; principal; 2017-12-12)
PROC: 0BD88ZX Extraction of Left Upper Lobe Bronchus, Via Natural or Artificial Opening Endoscopic, Diagnostic (ICD-10-PCS; 2017-12-13)
PROC: 0BD48ZX Extraction of Right Upper Lobe Bronchus, Via Natural or Artificial Opening Endoscopic, Diagnostic (ICD-10-PCS; 2017-12-13)
PROC: 0BDB8ZX Extraction of Left Lower Lobe Bronchus, Via Natural or Artificial Opening Endoscopic, Diagnostic (ICD-10-PCS; 2017-12-13)
PROC: 0BD58ZX Extraction of Right Middle Lobe Bronchus, Via Natural or Artificial Opening Endoscopic, Diagnostic (ICD-10-PCS; 2017-12-13)
PROC: 0BD18ZX Extraction of Trachea, Via Natural or Artificial Opening Endoscopic, Diagnostic (ICD-10-PCS; 2017-12-13)
PROC: 0BD68ZX Extraction of Right Lower Lobe Bronchus, Via Natural or Artificial Opening Endoscopic, Diagnostic (ICD-10-PCS; 2017-12-13)
PROC: 0BD78ZX Extraction of Left Main Bronchus, Via Natural or Artificial Opening Endoscopic, Diagnostic (ICD-10-PCS; 2017-12-13)
PROC: 0BD38ZX Extraction of Right Main Bronchus, Via Natural or Artificial Opening Endoscopic, Diagnostic (ICD-10-PCS; 2017-12-13)
PROC: 0BD98ZX Extraction of Lingula Bronchus, Via Natural or Artificial Opening Endoscopic, Diagnostic (ICD-10-PCS; 2017-12-13)
PROC: 0DB68ZX Excision of Stomach, Via Natural or Artificial Opening Endoscopic, Diagnostic (ICD-10-PCS; 2017-12-14)
PROC: 0DH63UZ Insertion of Feeding Device into Stomach, Percutaneous Approach (ICD-10-PCS; 2017-12-14)
DX: J69.0 Pneumonitis due to inhalation of food and vomit (principal); K29.61 Other gastritis with bleeding; E87.3 Alkalosis; L89.151 Pressure ulcer of sacral region, stage 1; T17.490A Other foreign object in trachea causing asphyxiation, initial encounter; I82.512 Chronic embolism and thrombosis of left femoral vein; F09 Unspecified mental disorder due to known physiological condition; I10 Essential (primary) hypertension; E03.9 Hypothyroidism, unspecified; F41.1 Generalized anxiety disorder; G40.909 Epilepsy, unspecified, not intractable, without status epilepticus; X58.XXXA Exposure to other specified factors, initial encounter; E87.6 Hypokalemia; E66.9 Obesity, unspecified; J39.8 Other specified diseases of upper respiratory tract; R13.19 Other dysphagia; J15.6 Pneumonia due to other Gram-negative bacteria; D53.9 Nutritional anemia, unspecified; R74.8 Abnormal levels of other serum enzymes; S06.9X9D Unspecified intracranial injury with loss of consciousness of unspecified duration, subsequent encounter; J20.9 Acute bronchitis, unspecified; G89.29 Other chronic pain; Z98.2 Presence of cerebrospinal fluid drainage device; Z79.899 Other long term (current) drug therapy; Y93.89 Activity, other specified; Y92.89 Other specified places as the place of occurrence of the external cause; Y99.8 Other external cause status; Z98.52 Vasectomy status; Z88.1 Allergy status to other antibiotic agents; Z88.0 Allergy status to penicillin; Z88.2 Allergy status to sulfonamides; Z88.8 Allergy status to other drugs, medicaments and biological substances; Z74.01 Bed confinement status; Z83.6 Family history of other diseases of the respiratory system; Z68.31 Body mass index [BMI] 31.0-31.9, adult

== ENCOUNTER 2017-12-31 07:21 | Emergency (ER) | payer MEDICARE, OTHER ==
[~2017-12-31] VITALS: Ht 162.5 cm; Wt 93.4 kg
[~2017-12-31 07:21] MED LIST changes: +GAVISCON LIQUI355 ML PO; +KEPPRA250 MG PEG; -KEPPRA250 MG PO; +MIRALAX POWDER17 G1 PEG; -MIRALAX POWDER17 G1 PO; +OMEPRAZOLE D/R20 MG PO; +SENOKOT8.6 MG PEG; -SENOKOT8.6 MG PO; +VITAMIN C500 M8 PO
[2017-12-31] MEDS ORDERED: PHENYTOIN100 MG/41 PEG (07:44)
[2017-12-31] MEDS ORDERED: VANCOCIN125 M1 PEG (07:46)
[2017-12-31] MEDS ORDERED: VANCOMYCIN HCL125 MG PEG ×2 (07:47→07:48)
[2017-12-31] MEDS ORDERED: DIGESTIVE PROB250 MG PEG (07:48)
[2017-12-31 08:24] LABS: BILIRUBIN NEGATIVE (NEGATIVE); BLOOD NEGATIVE (NEGATIVE); CLARITY CLOUDY (CLEAR); COLOR YELLOW (YELLOW); GLUCOSE NEGATIVE (NEGATIVE); KETONE NEGATIVE (NEGATIVE); LEUKO ESTERASE 3+ (NEGATIVE); NITRITE POSITIVE (NEGATIVE); PH 6.5 (5.0-9.0); SPECIFIC GRAVITY <= 1.005 (1.005-1.030); UROBILINOGEN 0.2 E.U./dl (0.2-1.0)
[2017-12-31 08:30] LABS: BASO # 0.1 10*3/uL (0.0-0.1); BASO % 0.8 % (0.0-1.0); EOS # 0.1 10*3/uL (0.0-0.4); EOS % 1.5 % (1.0-4.0); HEMATOCRIT 35.1 % (42.0-52.0); HEMOGLOBIN 11.8 g/dl (14.0-18.0); LYMPH # 1.4 10*3/uL (1.3-4.4); MEAN CORPUSCULAR HGB 32.6 pg (27.0-31.0); MEAN CORPUSCULAR HGB CONC 33.6 g/dl (33.0-37.0); MEAN PLATELET VOLUME 9.6 fl (9.6-12.3); MONO # 0.9 10*3/uL (0.1-1.0); MONO % 11.5 % (3.0-9.0); NEUT # 5.4 10*3/uL (2.3-7.9); NEUT % 67.7 % (47.0-73.0); PLATELET COUNT AUTOMATED 334 10*3/uL (130-400); RED BLOOD COUNT 3.62 10*6/uL (4.50-5.90); RED CELL DISTRI WIDTH 13.9 % (0-14.5); WHITE BLOOD COUNT 7.9 10*3/uL (4.8-10.8)
[2017-12-31 08:35] LABS: WBC TNTC wbc/hpf (0-5)
[2017-12-31 08:38] LABS: ACT PARTIAL THROMBO TIME 27.1 SECONDS (20.8-31.5)
[2017-12-31 08:47] LABS: ALBUMIN 2.8 gm/dl (3.1-4.5); ALKALINE PHOSPHATASE 117 U/L (45-117); BUN 7 mg/dl (7-24); CHLORIDE 97 mmol/L (98-107); CREATININE 0.39 mg/dL (0.70-1.30); SGOT/AST 14 IU/L (3-35); SGPT/ALT 31 U/L (12-78); SODIUM 136 mmol/L (136-145)
[2017-12-31 08:49] LABS: TROPONIN I < 0.015 ng/ml (<0.045)
[2017-12-31 10:02] VITALS: BP 121/85
== END 2017-12-31 09:58 | disposition home or self-care (01) ==
LOC: ED 07:21
PROVIDERS: Emergency Medicine
DX: I95.9 Hypotension, unspecified (principal); R25.1 Tremor, unspecified; G96.8 Other specified disorders of central nervous system; I10 Essential (primary) hypertension; E03.9 Hypothyroidism, unspecified; G40.909 Epilepsy, unspecified, not intractable, without status epilepticus; Z98.890 Other specified postprocedural states; Z90.89 Acquired absence of other organs; Z79.899 Other long term (current) drug therapy; Z88.0 Allergy status to penicillin; Z88.2 Allergy status to sulfonamides; Z87.891 Personal history of nicotine dependence; Z86.718 Personal history of other venous thrombosis and embolism; Z88.6 Allergy status to analgesic agent; Z88.8 Allergy status to other drugs, medicaments and biological substances; Z87.820 Personal history of traumatic brain injury

== ENCOUNTER 2018-06-13 12:05 | Emergency (ER) | payer MEDICARE, OTHER ==
[~2018-06-13 12:05] MED LIST changes: +DIGESTIVE PROB250 MG PEG; +PHENYTOIN100 MG/41 PEG; +VANCOCIN125 M1 PEG; +VANCOMYCIN HCL125 MG PEG
[2018-06-13 12:07] VITALS: BP 130/80
== END 2018-06-13 12:49 | disposition home or self-care (01) ==
LOC: ED 12:05
DX: K94.23 Gastrostomy malfunction (principal); I10 Essential (primary) hypertension; G40.909 Epilepsy, unspecified, not intractable, without status epilepticus; Z88.0 Allergy status to penicillin; Z88.2 Allergy status to sulfonamides; Z88.1 Allergy status to other antibiotic agents; Z88.6 Allergy status to analgesic agent; Z79.899 Other long term (current) drug therapy; Z86.718 Personal history of other venous thrombosis and embolism; Z87.891 Personal history of nicotine dependence

== ENCOUNTER 2018-08-18 03:07 | Inpatient (IN) | payer MEDICARE, OTHER ==
[~2018-08-18] VITALS: Ht 170.1 cm; Wt 90.3 kg
[2018-08-18] VITALS (8 sets, daily range): BP systolic 87–142; BP diastolic 47–95
--- NOTE | ~2018-08-18 | PR ---
[place], [place] PROGRESS NOTE NAME: BRIANNA VERAS UNIT #: [id number] ROOM: 524 DOCTOR: LAURA RIVASOCTOBER BIRTHDATE: [birth year] DOS: 08/24/2018 SUBJECTIVE: The patient is being followed for aspiration pneumonia and Staph hominis bacteremia. He is currently on vancomycin oral, which was started pending his stool for C. diff, which has come back negative as well as cefdinir and he is supposed to be set up for dalbavancin as an outpatient for the Staph hominis bacteremia according to most recent note, though I see no orders for it. Reviewing his cultures, he had positive blood culture for Staph hominis on August 18. Repeat blood cultures from the remain sterile. His MRSA screen was positive. His sputum had a few oral kian. His C. diff is negative. He has had a low grade temp up to 100.2 in the last 24 hours. WBCs are down to normal. The patient is alert, but nonverbal, also somewhat resisting physical exam. OBJECTIVE: VITAL SIGNS: Temperature 99.5, pulse 115, respirations 20, BP 115/81. GENERAL: A 48-year-old male, alert, but not meaningfully responsive, with tremor of the upper extremities. HEAD, EYES, EARS, NOSE AND THROAT: Normocephalic. NECK: Seems supple, though again he is difficult to examine due to continually pushing the examiner. LUNGS: Diminished bilaterally. Respirations even and unlabored. HEART: Regular rhythm. No murmur appreciated. ABDOMEN: Soft, nondistended. PEG site, no cellulitis. EXTREMITIES: No edema. He has contractures of bilateral lower extremities. GENITOURINARY: Catheter draining yellow urine with some sediments. SKIN: Warm, dry, free of rashes, multiple tattoos. ASSESSMENT: Aspiration pneumonia and Staphylococcus hominis bacteremia. PLAN: Continue the Omnicef, stop the oral vancomycin, reportedly dalbavancin has been set up as an outpatient. He has documented allergy to IV VANCOMYCIN. ADDENDUM I agree with the assessment and plan made by the nurse practitioner, Alena Sanchez. I reviewed the labs and imaging and made the necessary changes in the note. ALENA SANCHEZ CNP [place], [place] PROGRESS NOTE NAME: BRIANNA VERAS UNIT #: [id number] ROOM: 524 DOCTOR: LAURA RIVASOCTOBER BIRTHDATE: [birth year] Dominique Daugherty MD CM:RAJEEV [id number] OCTOBER LAURA RIVAS 09/07/18 1215 interface
--- NOTE | ~2018-08-18 | PR ---
[place], [place] PROGRESS NOTE [id number] UNIT #: [id number] ROOM: 524 DOCTOR: ARLEEN MONTEIRO MD BIRTHDATE: [birth year] DOS: SUBJECTIVE: The patient is about the same, gets agitated when you try to examine him. He did have a low grade fever of 100.2 at 8:00 this morning. OBJECTIVE: VITAL SIGNS: His pulse is 115, respirations 20, temperature 100.2, blood pressure 115/81. LUNGS: Diminished breath sounds, clear. HEART: Regular, tachycardic. ABDOMEN: Obese, soft. EXTREMITIES: Without any edema. SKIN: No rash noticed anywhere on his body. ASSESSMENT AND PLAN: 1. A patient who presents with cough and chest congestion to the Emergency Room, was admitted with possibility of acute tracheobronchitis and pneumonia. White cell count has normalized. Respiratory batista he is no longer short of breath or wheezy, so he is breathing treatments to be made p.r.n. since he gets agitated when he receives them. 2. Methicillin-resistant Staphylococcus aureus of the nares Bactroban ointment is ordered. 3. Periodic diarrhea. Clostridium difficile titers are still pending. As per the nursing staff, he has not had any diarrhea since yesterday night. 4. Bacteremia with Staphylococcus hominis. The patient is on Omnicef. If he remains afebrile, the plan is to discharge him to [facility] tomorrow. ARLEEN MONTEIRO MD CM:PNTRANS [phone] ARLEEN MONTEIRO MD 08/24/18 1116 interface
--- NOTE | ~2018-08-18 | PR ---
[place], [place] PROGRESS NOTE NAME: BRIANNA VERAS UNIT #: [id number] ROOM: 524 DOCTOR: CESAR AN MD,MATEUS BIRTHDATE: [birth year] DOS: 08/28/2018 SUBJECTIVE: The patient noted comfortable at this time without any acute distress. The patient remains awake and alert at this time. Has not been reported with any acute complaints. Remains afebrile as well. OBJECTIVE: VITAL SIGNS: Normal temperature, respiratory rate 18, heart rate 100, blood pressure 118/72. Pulse oxygen saturation noted on nasal cannula as 93% saturation on 3 liters nasal cannula. HEENT: No new change. NECK: Supple. CARDIOVASCULAR: S1, S2 is audible. LUNGS: Without any wheeze or crackles at the present time. ABDOMEN: Soft and nontender. Bowel sounds present. EXTREMITIES: No new change. LABORATORY DATA: Transesophageal echocardiogram done yesterday that excluded any evidence of endocarditis. IMPRESSION: The patient's bacteremia, Staphylococcus hominis with acute pneumonia from aspiration and acute chronic neurologic injury, traumatic brain injury. PLAN OF THERAPY: No change in the plan of care. Discharge planning could be started on intravenous antibiotic administration and the nursing facility. The patient remains afebrile. Monitor respiratory status otherwise. MATEUS GUERRERO MD CM:PNTRANS [phone] MATEUS AN MD 08/28/181925 interface
--- NOTE | ~2018-08-18 | PR ---
[place], [place] PROGRESS NOTE NAME: BRIANNA VERAS UNIT #: [id number] ROOM: 524 DOCTOR: DEE HILLMAN MD BIRTHDATE: [birth year] DOS: 08/29/2018 SUBJECTIVE: The patient remains about the same. He is awake, alert, unable to communicate. OBJECTIVE: GENERAL APPEARANCE: Quadriplegia, advanced brain injury and the patient unable to communicate. VITAL SIGNS: Blood pressure 124/61, heart rate of 104 beats per minute, breathing 18 times per minute, temperature 98.6 degrees Fahrenheit. HEENT AND NECK: Exam within normal limits. CARDIOVASCULAR SYSTEM: Heart rate is regular in rate and rhythm. S1 and S2 normally audible. LUNGS: Clear to auscultation. ABDOMEN: Soft, nontender. No obvious organomegaly. Bowel sounds are present. EXTREMITIES: Without significant cyanosis or edema. IMPRESSION: 1. The patient with aspiration pneumonia with treatment. Fevers, resolved. The patient was on IV vancomycin. 2. Staphylococcus hominis without any signs of endocarditis, treated. 3. Chronic traumatic brain injury and disability. We are taking bedsore and fall precautions. 4. Proteus mirabilis grew from lung cultures and pneumonia, treated with cefdinir. 5. Hypernatremia, being treated with hydration. 6. Advance disability and adult failure to thrive. I recommended DNR comfort care code status. 7. Generalized anxiety disorder with agitation controlled with hydroxyzine and Haldol. 8. Generalized seizure disorder, asymptomatic with Dilantin and Keppra. 9. The patient to get dalbavancin IV antibiotic, 1 dose, 1500 mg as an outpatient. That is the only way apparently the patient's insurance will pay for this medication and will have to be arranged after discharge from [facility]. It is very difficult to transport the patient considering his disabilities; I am trying to get him a dose before he leaves the hospital after discharge. This was discussed with nursing supervising staff and they will work on this tomorrow morning. [place], [place] PROGRESS NOTE NAME: BRIANNA VERAS UNIT #: [id number] ROOM: 524 DOCTOR: DEE HILLMAN MD BIRTHDATE: [birth year] DEE HILLMAN MD CM:PNDIANA [id number] DEE HILLMAN MD 09/05/18 0801 interface
--- NOTE | ~2018-08-18 | PR ---
[place], [place] PROGRESS NOTE NAME[id number] UNIT #: [id number] ROOM: 524 DOCTOR: ARLEEN MONTEIRO MD BIRTHDATE: [birth year] DOS: SUBJECTIVE: The patient is pretty the same, does not have any new changes. OBJECTIVE: VITAL SIGNS: Graphic trend shows pressure of 125/77, pulse of 102, respirations 20, temperature 99.6, T-max of 100.7. LUNGS: Diminished breath sounds, clear this morning. HEART: Regular. ABDOMEN: Obese, soft. EXTREMITIES: Without any edema. LABORATORY DATA: Respiratory virus panel was negative except for adenovirus. WBC count is 10.5, hemoglobin 13.7. BMP: Glucose 125, BUN 24, creatinine 0.58, sodium down to 147, potassium normal, chloride down to 115. CT of the chest was unremarkable. ASSESSMENT AND PLAN: 1. The patient with continued fevers with Staphylococcus hominis in the blood. Repeat cultures done on 07/25/2018 have come back showing no bacterial growth. For completion sake, Dr. Posey has requested a ELIAN and we will ask Dr. Cantu for consultation for the procedure to be done. Once that is done, the patient should be able to go back to the long-term. 2. Hypernatremia and hyperchloremia. Free water supplementation was ordered. 3. History of head injury with organic brain syndrome, stable. ARLEEN MONTEIRO MD CM:PNTRANS [id number] ARLEEN MONTEIRO MD 08/26/18 1535 interface
--- NOTE | ~2018-08-18 | CON ---
[place], [place] REPORT OF CONSULTATION NAME: BRIANNA VERAS UNIT #: [id number] ROOM: 524 DOCTOR: MATEUS HERRERA MD BIRTHDATE: [birth year] DOS: 08/18/2018 PULMONARY CONSULTATION, EVALUATION, AND MANAGEMENT CONSULTATION REQUESTED BY: Pato Hilario M.D. REASON FOR CONSULTATION: For assessment of respiratory failure. HISTORY OF PRESENT ILLNESS: This is a 48-year-old white male patient, very well known to me from the past. The patient has been admitted to the hospital under the care of Dr. Hilario. The patient was brought to the hospital by the ambulance. The patient has been reported symptoms of shortness of breath, which has been occurring at home. The patient stays at the nursing facility. Possibility of aspiration was considered as well. The patient is nonverbal, does not answer the question, current neurologic status. He has been currently using the BiPAP, which has been noted with good oxygen saturation with that. He has been assessed in the Emergency Room by the ER physician. The diagnosis of acute respiratory failure was established and the patient is admitted to the hospital for the pneumonia management as well. PAST MEDICAL HISTORY: 1. Traumatic brain injury and quadriplegia. 2. Seizures. 3. The patient with aphasia secondary to current traumatic brain injury. 4. Hydrocephalus with SLASHER HAND shunt. 5. Moderate obesity. 6. Generalized anxiety disorder. 7. Benign essential hypertension. 8. Deep venous thrombosis history. 9. Muscle wasting history. 10. Hypothyroidism. PAST SURGICAL HISTORY: 1. Vasectomy. 2. Right knee surgery. 3. Hernia repair. 4. Therapeutic bronchoscopy that was done on his last admission on 12/12/2017. CURRENT MEDICATIONS: Administered were noted use of primidone, Lasix, phenytoin, Keppra, clindamycin, DuoNeb, and Tylenol. DRUG ALLERGIES: 1. PENICILLIN. 2. SULFA DRUGS. 3. CIPRO. 4. BACTRIM. 5. ZOFRAN. SOCIAL HISTORY: The patient was noted nonsmoker lifetime. There is no history of alcohol use or illicit drug use. [place], [place] REPORT OF CONSULTATION NAME: BRIANNA VERAS UNIT #: [id number] ROOM: 524 DOCTOR: CESAR AN MD,MATEUS BIRTHDATE: [birth year] FAMILY HISTORY: Noncontributory to his illness. REVIEW OF SYSTEMS: Could not be completed because the patient is noted nonverbal, unable to communicate with any history. The history contained in the document is review of the medical record by the other physician, my past assessment, and consultation note as well. PHYSICAL EXAMINATION: GENERAL: This is a 48-year-old male patient currently noted using the BiPAP without any acute distress. Eyes closed. Height of 5 feet 7 inches, weight of 199 pounds, and BMI of 31 recorded. VITAL SIGNS: Temperature is 101.8 degrees Fahrenheit, normal temperature; respiratory rate 17-20 recorded, the heart rate, sinus tachycardia, 141; currently, noted 97; blood pressure is 160/69-142/78. The pulse oxygen saturation recorded on 60% with the BiPAP is 95% saturation. HEENT: Head was currently atraumatic. Eye nonicterus. NECK: Supple. Moderate obesity. CARDIOVASCULAR SYSTEM: S1, S2 is audible. LUNGS: Decreased breath sounds in the lungs noted bilaterally. Scattered crackles. There was no wheezing. ABDOMEN: Soft and obese. EXTREMITIES: Noted without any acute edema. MUSCULOSKELETAL: No gross deformities. CENTRAL NERVOUS SYSTEM: Could not be performed. The patient has been known with history of traumatic brain injury and quadriplegia. LABORATORY DATA: Dilantin level as an outpatient was noted 3.3, which was low. CBC of 08/18/2018, WBC count of 17.6, hemoglobin and hematocrit are normal, platelet count was normal. Lactic acid is 1.3 noted on admission this morning. Arterial blood gas, pH of 7.44, pCO2 of 44, pO2 of 115 on 100% nonrebreather mask. The CMP this morning, BUN was normal, creatinine was normal, remaining electrolytes were normal. Troponin was normal. The PT and PTT were noted as normal. IMAGING DATA: Chest x-ray, 1 view, which was done was personally reviewed, does not show any evidence of gross visible pulmonary abnormality at this time with one-view chest x-ray. IMPRESSION: 1. The patient with possibility of aspiration, pneumonia cannot be completely excluded with a chest x-ray because limited assessment could be done with a simple chest x-ray and not noted very sensitive to diagnose and confirm the pneumonia if it is smaller in the lower lobes above the diaphragm. 2. The patient with acute hypoxic respiratory failure, requiring significant amount of oxygen supplementation to maintain a pulse ox saturation of 92% or greater as well. 3. History of quadriplegia, traumatic brain injury, and nonverbal status. 4. Oropharyngeal dysphagia as well. [place], [place] REPORT OF CONSULTATION NAME: BRIANNA VERAS UNIT #: [id number] ROOM: 524 DOCTOR: CESAR AN MD,MATEUS BIRTHDATE: [birth year] PLAN OF THERAPY: At this time, the patient has been started on community aspiration coverage with the use of clindamycin, which should suffice. Monitor temperature curve. Obtain another chest x-ray, PA lateral view in the morning to reassess for the pneumonia if necessary. Also, obtain CT scan of the chest for confirmation of the pneumonia if needed. DVT prophylaxis has been ordered. Other therapy, plan of management. Continue the BiPAP for the stability of the respiratory status, code status, is noted DNRCC arrest. Other supportive therapy, plan of management, and care plan would be continued. Ordered the respiratory virus panel, influenza A and B nasal washing antigen, and monitor culture results of the blood. Thanks for allowing me to participate in the care of this patient. MATEUS GUERRERO MD CM:CONSTR:REPORT OF CONSULTATION 1615 08/19/18 0133 interface
--- NOTE | ~2018-08-18 | PR ---
[place], [place] PROGRESS NOTE [id number] UNIT #: [id number] ROOM: 524 DOCTOR: CESAR AN MD,MATEUS BIRTHDATE: [birth year] DOS: 08/30/2018 PULMONARY PROGRESS NOTE SUBJECTIVE: The patient remains awake and alert this morning without any ongoing acute medical problem. From respiratory standpoint, not noted in respiratory distress, continued to require the oxygen supplementation with the nasal cannula. The patient remains stable. He has not been noted with any acute distress this morning at the time of assessment. OBJECTIVE: VITAL SIGNS: Vital signs for the patient, which were recorded showed the temperature was noted as normal. The respiratory rate of 18, heart rate of 100, blood pressure 127/84. Mentally the patient was noted awake and alert. Pulse ox saturation 95% saturation on 3 liters nasal cannula. HEENT: Showed no acute change. NECK: Supple. CARDIOVASCULAR: S1, S2 audible. LUNGS: Without any wheeze or crackle this morning of assessment. ABDOMEN: Soft, bowel sounds present. EXTREMITIES: No acute change. IMPRESSION: The patient with resolution bacteremia with resolution of fever and resolving acute respiratory failure and acute pneumonia. PLAN OF TREATMENT: No change from pulmonary standpoint. Continue the patient's current therapy, plan of management. Discharge planning per primary care physician back to the senior care facility whenever desired. MATEUS GUERRERO MD CM:PNTRANS [id number] MATEUS AN MD 08/31/18 0239 interface
--- NOTE | ~2018-08-18 | PR ---
[place], [place] PROGRESS NOTE NAME: BRIANNA VERAS [facility] #: [id number] UNIT #: [id number] ROOM: 524 DOCTOR: CESAR AN MD,MATEUS BIRTHDATE: [birth year] DOS: 08/26/2018 SUBJECTIVE: The patient remains in the hospital. The patient is noted with intermittent temperature elevation. The patient was started on the vancomycin and the temperature noted was decreased, but noted with a low-grade fever as well. The patient has not been reported any symptoms of fever or chills. There were no symptoms of hemoptysis. He has not been able to give any history of chronic neurologic problem at this time, but remains awake and alert, on oxygen supplementation nasal cannula. OBJECTIVE: VITAL SIGNS: Which has been recorded for the patient showed the temperature of 100.2 degrees Fahrenheit. The respiratory rate 20-22, heart rate of 115-118, with mild sinus tachycardia, blood pressure 125/77 to 138/85. The pulse oxygen saturation on 6 liters of nasal cannula is 94% saturation. HEENT: Examination shows head was atraumatic. Eyes: No icterus. NECK: Supple. No tracheostomy scar. CARDIOVASCULAR: S1, S2 is audible. LUNGS: The patient was noted without any wheezing or crackles at the present time. ABDOMEN: Soft, nontender. Bowel sounds present. EXTREMITIES: Without edema. VISIBLE SKIN: No lesions or rashes. CENTRAL NERVOUS SYSTEM: Appeared to be intact, noted awake and alert with history of chronic paraplegia. Respiratory virus panel on 08/20/2018, noted positive for adenovirus. CBC this morning, WBC count remains normal, hemoglobin 13.7, platelet count was normal. BMP on 08/26/2018, BUN 24, creatinine was normal. The CT of the chest without contrast that was completed yesterday for assessment, any occult infiltration abnormalities. Because elevation of fever, the patient was reviewed. The CT scan of the chest, which was done without contrast yesterday was reviewed. PET images shows evidence of a small area of atelectasis in the left lower lobe. Besides that pleural base interstitial infiltration was noted in lateral subsegment of the right lower lobe. There was no lymphadenopathy. The right lung appeared to be clear of any acute infiltration. The findings were compared to the CT scan of the chest of 11/2017 was noted with a new findings of interstitial infiltration. IMPRESSION: The patient who has been currently noted with ongoing fever. The patient intermittently with only organism isolated in the blood was Staph hominis. The patient has been receiving resumed vancomycin. Possibility of pneumonia can be completely excluded. The patient's cause of the fever and other etiology of the elevation in temperature intermittently would be continued. Further investigated. The patient continued to have temperature elevation in the past 3 days. Stool for C. diff toxin has been checked and noted negative. Adenovirus was isolated from the respiratory secretions at the nasopharyngeal swab for this patient on the of this month, if that is causing the temperature at this time was unknown. [place], [place] PROGRESS NOTE NAME: BRIANNA VERAS UNIT #: [id number] ROOM: 524 DOCTOR: MATEUS HERRERA MD BIRTHDATE: [birth year] PLAN OF MANAGEMENT: Continue to investigate further at this time. Consider bronchoscopy if necessary to further assess the endobronchial tree. Continuation of other therapy, plan of management, care plan of treatment. Usual medical management, other therapies. Supportive care, the plan of treatment and management. MATEUS GUERRERO MD CM:RAJEEV [phone] MATEUS AN MD 08/27/18 0239 interface
--- NOTE | ~2018-08-18 | EKG ---
[place], [place] ELECTROCARDIOGRAM REPORT NAME: BRIANNA VERAS UNIT #: [id number] ROOM: 524 DOCTOR: СВЕТЛАНА DRAFT REPORT BIRTHDATE: [birth year] [facility] Test Date: 2018-08-18 Test Time: 03:38:37 Pat Name: BRIANNA VERAS Department: Room: 524 Gender: M Freezer Operator: : 1970 Requested By: JORY BOND Order Number: [id number] Reading MD: Cleveland Posey MD Measurements Intervals [place] Rate: 143 P: 91 VA: 129 QRS: -34 QRSD: 88 T: 49 QT: 300 QTc: 463 Interpretive Statements Sinus tachycardia Probable left atrial enlargement Low voltage, extremity leads Abnormal R-wave progression, late transition No previous ECG available for comparison Electronically Signed On 08-21-2018 10:59:40 PST by Cleveland Posey MD CM:EKGRPT:ELECTROCARDIOGRAM REPORT [id number] JORY SOTOMAYOR DRAFT REPORT JORY BOND MD
--- NOTE | ~2018-08-18 | PR ---
[place], [place] PROGRESS NOTE [id number] UNIT #: [id number] ROOM: 524 DOCTOR: ARLEEN MONTEIRO MD BIRTHDATE: [birth year] DOS: 08/25/2018 SUBJECTIVE: The patient is about the same, continues to run a temperature this morning of 100.6, T-max 102.5. OBJECTIVE: LUNGS: Diminished breath sounds, scattered wheezes. HEART: Regular. ABDOMEN: Obese. EXTREMITIES: Without any edema. LABORATORY DATA: C. diff titer has been negative. BMP: Glucose 108, BUN 23, creatinine 0.72, sodium 154, potassium 4.3, chloride 113, bicarbonate 33. WBC count is 12.2, hemoglobin 15.7. Routine culture expectorant shows Proteus mirabilis sensitive to cephalosporins. ASSESSMENT AND PLAN: 1. Staphylococcus hominis of the blood with continued high grade fevers. I will start the patient on IV vancomycin. Discussed with Dr. Posey. 2. Acute bronchospasm this morning. We will check a CT scan of the chest to rule out underlying pneumonia. The patient's last chest x-ray was done on the , which did not show any pathology, but because of the continued high grade fever and bronchospasm, we will check the CT. 3. Adult failure to thrive. 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 4. Hyponatremia, hypochloremia. Add water in the PEG tube. ARLEEN MONTEIRO MD CM:PNTRANS [id number] ARLEEN MONTEIRO MD 08/25/18 1334 interface
--- NOTE | ~2018-08-18 | PR ---
[place], [place] PROGRESS NOTE NAME: BRIANNA VERAS UNIT #: [id number] ROOM: 524 DOCTOR: DEE HILLMAN MD BIRTHDATE: [birth year] DOS: 08/19/2018 SUBJECTIVE: Patient awake, alert, not communicating. OBJECTIVE: VITAL SIGNS: Blood pressure 108/80, heart rate of 110 beats per minute, temperature of 98 degrees Fahrenheit. GENERAL APPEARANCE: Patient with mental confusion, in no visible distress. HEENT AND NECK: Exam within normal limits. CARDIOVASCULAR SYSTEM: Heart rate is regular in rate and rhythm. S1 and S2 normally audible. LUNGS: Clear to auscultation. ABDOMEN: Soft, nontender. No obvious organomegaly. Bowel sounds are present. EXTREMITIES: Patient with quadriplegia and contractures of all 4 extremities. IMPRESSION: 1. Patient with new right upper lobe infiltrate and pneumonia, being treated with clindamycin and vancomycin. 2. Advanced disability and quadriplegia. We are taking bedsore precautions using an air mattress. 3. Patient with sepsis, tachycardia, leukocytosis, pneumonia, being treated with antibiotics. I will consult ID. Patient has gram-positive cocci in pairs and clusters on blood culture performed in the Emergency Department. 4. Acute exacerbation of asthma, being treated with DuoNeb, bronchodilators, and antibiotics. 5. Hypothyroidism. We will replace with thyroid supplements. 6. For nutrition, patient is dependent on PEG tube feedings because he has dysphagia and is unable to swallow. 7. Patient on DVT prophylaxis with Lovenox. 8. History of severe traumatic brain injury and quadriplegia with contractures in all 4 extremities. Patient nonverbal. 9. Generalized seizure disorder, asymptomatic with Keppra and Dilantin. DEE HILLMAN MD CM:PNTRANS [phone] 1 DEE HILLMAN MD 08/20/18321 interface
--- NOTE | ~2018-08-18 | PR ---
[place], [place] PROGRESS NOTE NAME: BRIANNA VERAS UNIT #: [id number] ROOM: 524 DOCTOR: MATEUS HERRERA MD BIRTHDATE: [birth year] DOS: 08/22/2018 SUBJECTIVE: The patient remains awake and alert this morning of assessment. He has not been noted any chest congestion or any distress. The patient could not have verbal communication because of the chronic traumatic brain injury as well. He does follow vocal commands, which is mild movement. The patient of the extremities. He does have a good eye contact. OBJECTIVE: VITAL SIGNS: Normal temperature, respiratory rate 21, heart rate 99, blood pressure 130/90, pulse oxygen saturation on nasal cannula high flow 99% saturation. HEENT: Examination shows head was atraumatic. Eyes nonicterus. NECK: Supple. CARDIOVASCULAR: S1, S2 is audible. LUNGS: Without any wheeze or crackles. ABDOMEN: Soft and obese. PEG tube in place. EXTREMITIES: The patient without any edema. Chronic obesity. MUSCULOSKELETAL: No deformities, which were gross. CENTRAL NERVOUS SYSTEM: The patient unchanged from previous with traumatic brain injury. LABORATORY DATA: Reviewed. Chest x-ray developed reviewed from the PACS images shows improvement and resolution of the right upper lung pulmonary infiltration. The vancomycin trough level 17.6. Blood cultures, which were done this patient on the of this month showed no bacterial growth. IMPRESSION: 1. The patient with resolving acute aspiration pneumonia. 2. Staph hominis bacteremia, possible contamination with followup culture noted no bacterial growths. 3. Traumatic brain injury. 4. Acute severe respiratory failure. PLAN OF TREATMENT: Titrate oxygen to maintain pulse ox is 92% or greater. Use of the BiPAP at nighttime still should be continued. Once, the patient's oxygen requirement would be noted less than 6 liters or less. He could be considered for transfer to the nursing facility. [place], [place] PROGRESS NOTE NAME: BRIANNA VERAS UNIT #: [id number] ROOM: 524 DOCTOR: MATEUS HERRERA MD BIRTHDATE: [birth year] MATEUS GUERRERO MD CM:PNTRANS [id number] MATEUS AN MD 08/22/18 1628 interface
--- NOTE | ~2018-08-18 | PR ---
[place], [place] PROGRESS NOTE [id number] UN[facility] #: [id number] ROOM: 524 DOCTOR: CESAR AN MD,MATEUS BIRTHDATE: [birth year] DOS: 08/19/2018 PULMONARY PROGRESS NOTE SUBJECTIVE: The patient remains in the hospital. The patient noted awake this morning. He is using the BiPAP as ordered previously. Oxygen supplementation on the BiPAP this morning was noted as 50% oxygen. The pulse oxygen saturation recorded as 95%-96% at bedside. He has been getting the feeding from the PEG tube as well. He has not been noted any acute hemodynamic stability. There was no verbal communication done because of the traumatic brain injury history. OBJECTIVE: VITAL SIGNS: The vital signs of the patient, the patient remained afebrile in the last 24 hours, the temperature is noted as 101.8 degrees Fahrenheit yesterday; respiratory rate of 18-20, heart rate of 102-116, mild sinus tachycardia; blood pressure of 140/60-120/72. Pulse oxygen saturation on 50% oxygen is 96% saturation. HEENT: On examination, head was atraumatic at the present time. NECK: Supple. CARDIOVASCULAR SYSTEM: S1, S2 is audible. LUNGS: Noted with decreased breath sounds in the lungs bilaterally. ABDOMEN: Soft and moderate obesity. Bowel sounds present. EXTREMITIES: No acute edema. VISIBLE SKIN: No lesions or rashes. MUSCULOSKELETAL: Without any acute deformities. CENTRAL NERVOUS SYSTEM: The patient with chronic traumatic brain injury. IMAGING DATA: The chest x-ray that was done this morning, PA lateral view pending Radiology interpretation noted a small pleural fluid with possibility of small infiltration in the right lower lung would be considered. LABORATORY DATA: Blood culture shows gram-positive cocci in pairs and clusters on 08/18/2017. The influenza A and B nasal washing antigens were negative. IMPRESSION: 1. The patient has been currently treated in the hospital at this time for the medical management of acute aspiration pneumonia. 2. Acute hypoxemic respiratory failure secondary to that. 3. Gram-positive cocci bacteremia. 4. Bacteremia versus contamination to be monitored. 5. Chronic quadriplegia and traumatic brain injury, nonverbal status. 6. Oropharyngeal dysphagia. 7. Moderate obesity. PLAN OF MANAGEMENT: Continue the BiPAP at this time as tolerated. Antibiotic to be given. Abnormal blood cultures, at this time will be treated with empirical use of antibiotics until the culture results will be available to further determine. Continuation of DVT prophylaxis, other medical management, plan of care and therapies, and treatment. Supportive care. [place], [place] PROGRESS NOTE NAME: BRIANNA VERAS UNIT #: [id number] ROOM: 524 DOCTOR: MATEUS HERRERA MD BIRTHDATE: [birth year] MATEUS GUERRERO MD CM:PNTRANS 1000 MATEUS AN MD 08/20/18 0055 interface
--- NOTE | ~2018-08-18 | PR ---
[place], [place] PROGRESS NOTE NAME: BRIANNA VERAS [facility] #: [id number] UNIT #: [id number] ROOM: 524 DOCTOR: LAURA RIVAS,OCTOBER BIRTHDATE: [birth year] DOS: 08/25/2018 SUBJECTIVE: The patient is a 48-year-old male who is being followed for Staphylococcus hominis bacteremia. This is his second occurrence of this in the last couple of months. Therefore, he is to receive treatment for it, vancomycin was reinstituted overnight. He was supposed to be discharged with dalbavancin, but that has not occurred. He has also been receiving cefdinir for possible aspiration pneumonia; however, his last chest x-ray from the is clear. There is no active disease, I did review the film. His repeat blood cultures from the remained sterile. His sputum culture grew Proteus, which is fairly sensitive today. His WBCs are up to 12.2. He spiked a temperature of 102.5 overnight, had a significant jump in his BUN and sodium. BUN is up to 23. Sodium is up to 154. Creatinine remains normal at 0.72. The patient is nonverbal and unable to give any history. He has had few small loose stools per discussion with nursing, no emesis. Unable to obtain any further review of systems. LABORATORY DATA: Labs as reviewed above. PHYSICAL EXAMINATION: VITAL SIGNS: Temperature 100.6, pulse 106, respirations 19, BP 138/92. GENERAL: A 48-year-old male, nonverbal with tremor. HEAD, EYES, EARS, NOSE AND THROAT: Normocephalic. Unable to view oropharynx, he is noncooperative with exam. LUNGS: Diminished at the bases bilaterally, but poor inspiratory effort. Respirations even and unlabored. HEART: Regular rhythm. No murmur appreciated. ABDOMEN: Soft, nondistended. PEG site, no purulent discharge or cellulitis. EXTREMITIES: Bilateral lower extremities contracted. No peripheral edema. He has got one small Hep-Lock right upper chest near the axilla. SKIN: Warm, dry, free of rashes. Bee catheter with clear jennifer urine. ASSESSMENT: Recurrent Staphylococcus hominis bacteremia. PLAN: Vancomycin has been resumed. He is also on cefdinir for possible aspiration. The new fever may be due to volume contraction. His free water was increased per Dr. Areans earlier today to 200 q. 4 flushes from 200 q. shift. I will also run liter of fluids. He will have repeat labs tomorrow. Follow up on the blood cultures that were obtained overnight. ADDENDUM I agree with the assessment and plan made by the nurse practitioner, Alena Maldonado. I reviewed the labs and imaging and made the necessary changes in the note. [place], [place] PROGRESS NOTE NAME: BRIANNA VERAS UNIT #: [id number] ROOM: 524 DOCTOR: LAURA RIVASOCTOBER BIRTHDATE: [birth year] ALENA MALDONADO CNP Dominiquewilli Daugherty MD CM:PNTRANS [id number] ALENA MALDONADO CNP 09/23/18 0918 interface
--- NOTE | ~2018-08-18 | PR ---
[place], [place] PROGRESS NOTE NAME: BRIANNA VERAS UNIT #: [id number] ROOM: 524 DOCTOR: CESAR AN MD,MATEUS BIRTHDATE: [birth year] DOS: 08/29/2018 SUBJECTIVE: The patient was noted comfortable at this time. His eyes were noted open and awake and alert. He has not been noted in respiratory distress. Oxygen supplementation was continued with the nasal cannula and remains afebrile. OBJECTIVE: VITAL SIGNS: Normal temperature, respiratory rate 18, heart rate 86, blood pressure 100/69, pulse oxygen saturation 3 liters nasal cannula 95% saturation. HEAD, EYES, EARS, NOSE, AND THROAT: No acute change. NECK: Supple. CARDIOVASCULAR SYSTEM: S1, S2 is audible. LUNGS: Without any wheeze or crackles at this time. ABDOMEN: Soft, nontender. Bowel sounds present. EXTREMITIES: No acute change. Chronic deformities related. LABORATORY DATA: The patient's previous traumatic brain injury. The vancomycin trough level and the level noted today 25. IMPRESSION: 1. Resolving fever, with use of the vancomycin with the recent isolation Staph hominis. There was no evidence of endocarditis. 2. Possibility of acute pneumonia has been considered as well, which has been treated with the same antibiotic from aspiration. 3. Chronic traumatic brain injury. PLAN OF TREATMENT: No changes from the pulmonary standpoint. Continue the patient's current therapy, plan of management as in progress. Transfer the patient to detention facility whenever desired by the primary care attending. MATEUS GUERRERO MD CM:PNTRANS [id number] [id number] MATEUS AN MD 08/29/18 1522 interface
--- NOTE | ~2018-08-18 | PR ---
[place], [place] PROGRESS NOTE NAME: [facility] [id number] UNIT #: [id number] ROOM: 524 DOCTOR: CESAR AN MD,MATEUS BIRTHDATE: [birth year] DOS: 08/20/2018 PULMONARY PROGRESS NOTE SUBJECTIVE: The patient appeared to be comfortable using the BiPAP as ordered. Noted awake. He has not been noted with any distress this morning. Oxygen supplementation still noted 50% with BiPAP use. He has not been reported any hemodynamic instability by the nursing staff. Verbal communication was not possible because of history of traumatic brain injury. Low grade fever noted in the last 24 hours. There was no diarrhea reported. Feeding was continued from the PEG tube. OBJECTIVE: VITAL SIGNS: Highest temperature 100.5 degrees Fahrenheit, normal temperature, respiratory rate 14-20. Height of 72-104 with mild sinus tachycardia, blood pressure 122/44-117/78. The pulse oxygen saturation recorded on the BiPAP 96% saturation 50% oxygen. HEENT: Examination shows head was atraumatic. Eyes nonicterus. NECK: Supple. CARDIOVASCULAR: S1, S2 audible. LUNGS: Moderate decreased breath sounds in the lungs were noted bilaterally. ABDOMEN: Soft and obese. EXTREMITIES: Obesity. VISIBLE SKIN: No lesions or rashes. MUSCULOSKELETAL: Without any acute deformities. CENTRAL NERVOUS SYSTEM: The patient's mental status was noted awake. Further examination could not be performed. LABORATORY DATA: Reviewed for this patient. The vancomycin trough level 20.9. The blood culture was noted with gram-positive cocci in clusters, 1/4 in the anaerobic bottle. The chest x-ray that was done shows evidence of a right upper lobe consolidation, infiltration. IMPRESSION: 1. Acute pneumonia with acute respiratory failure secondary to that. 2. Bacteremia versus contamination gram-positive cocci at this time remains pending. Influenza A and B, nasal washing antigens yesterday was completed were noted negative. 3. The patient with oropharyngeal dysphagia with aspiration pneumonia. 4. Chronic traumatic brain injury. PLAN OF MANAGEMENT: Continue the BiPAP use for this patient intermittently during the day at this time and continuous at nighttime. Oxygen supplementation was continued. Continue current antibiotics with changes in the spectrum of the antibiotic based on the culture results. Follow up the results of the blood cultures as well for further identification sensitivities of the current organisms. Bronchodilators. No other additional treatment changes need to be done today. [place], [place] PROGRESS NOTE NAME: BRIANNA VERAS UNIT #: [id number] ROOM: 524 DOCTOR: MATEUS HERRERA MD BIRTHDATE: [birth year] MATEUS GUERRERO MD CM:RAJEEV [id number] MATEUS AN MD 08/20/18 1237 interface
--- NOTE | ~2018-08-18 | PR ---
[place], [place] PROGRESS NOTE NAME: BRIANNA VERAS UNIT #: [id number] ROOM: 524 DOCTOR: DEE HILLMAN MD BIRTHDATE: [birth year] DOS: 08/28/2018 SUBJECTIVE: The patient is awake, alert, not communicating. Fevers have improved. OBJECTIVE: VITAL SIGNS: Blood pressure 118/72, heart rate of 100 beats per minute, breathing 18 times per minute, afebrile. GENERAL APPEARANCE: The patient is alert and oriented x 3, in no visible distress. The patient with generalized weakness, advanced brain injury and the patient unable to communicate with quadriplegia. HEENT AND NECK: Exam within normal limits. CARDIOVASCULAR SYSTEM: Heart rate is regular in rate and rhythm. S1 and S2 normally audible. LUNGS: Clear to auscultation. ABDOMEN: Soft, nontender. No obvious organomegaly. Bowel sounds are present. EXTREMITIES: Without significant cyanosis or edema. IMPRESSION: 1. Staphylococcus hominis bacteremia, being followed and treated. 2. Aspiration pneumonia and recurrent fevers, resolved after IV vancomycin was added along with cefdinir. Dr. Posey is following. 3. Proteus mirabilis isolated from lung cultures and pneumonia. 4. Hypernatremia. The patient being hydrated with IV fluids. 5. Poor IV access. We will try to get a central line placed to continue antibiotics and IV fluids. 6. Advance disability and failure to thrive. The patient's father appears to be agreeing to change his code status to DNR comfort care, which appears to be more appropriate for the patient. This was discussed with the patient's father and nursing staff. 7. Generalized anxiety disorder and agitation controlled with hydroxyzine and Haldol. 8. Generalized seizure disorder without any seizures with Dilantin and Keppra. [place], [place] PROGRESS NOTE NAME: BRIANNA VERAS UNIT #: [id number] ROOM: 524 DOCTOR: DEE HILLMAN MD BIRTHDATE: [birth year] DEE HILLMAN MD CM:PNTRANS [id number] DEE HILLMAN MD 08/28/18 1452 interface
--- NOTE | ~2018-08-18 | PR ---
[place], [place] [facility]GRESS NOTE [id number] UN[facility] #: [id number] ROOM: 524 DOCTOR: CESAR AN MD,MATEUS BIRTHDATE: [birth year] DOS: 08/25/2018 PULMONARY PROGRESS NOTE SUBJECTIVE: The patient has been noted comfortable at this time, resting in the bed. Noted awake, using oxygen supplementation via nasal cannula. He has not been noted with any hemodynamic instability. Noted with a spike of temperature, 102 degrees Fahrenheit since the vancomycin has been discontinued. He was getting oral antibiotic per recommendation of Infectious Disease specialist earlier. Review of systems could not be completed since the patient is noted with history of traumatic brain injury. The patient was noted comfortable at this time, lying in the bed, using oxygen supplementation about 6 or 7 liters on nasal cannula. He was noted awake, but does not have verbal communication because of chronic neurologic injury with quadriplegia and traumatic brain injury. Review of systems could not be completed since the patient is noted with history of traumatic brain injury. OBJECTIVE: VITAL SIGNS: For the patient recorded as temperature as high as 102.5 degree Fahrenheit and this afternoon noted 100.7 degree Fahrenheit, respiratory rate ranging between 19-24, heart rate ranging between 100-136, blood pressure 124/81-138/92. Pulse oxygen saturation recorded on 6 liters nasal cannula as 97% saturation. HEENT: Examination shows head was atraumatic. Eyes nonicterus. NECK: Supple. CARDIOVASCULAR SYSTEM: S1, S2 audible. LUNGS: The patient was noted without any crackle, rhonchi, or wheezing. ABDOMEN: Soft, nontender. Bowel sounds present. EXTREMITIES: The patient was noted with chronic deformities with muscle mass loss secondary to chronic traumatic brain injury and quadriplegia. VISIBLE SKIN: No lesions or rashes. LABORATORY DATA: The blood culture, which was taken on 08/19/2018 was noted without any bacterial growth. Vancomycin trough level yesterday noted 1.2. Culture of the sputum noted Proteus mirabilis, sensitive to several antibiotics, noted resistant to fluoroquinolones. CBC: WBC count 12.2, MCV 100, remaining CBC normal. BMP this morning: BUN 23, creatinine normal, glucose 108, sodium 154, CO2 of 33. IMPRESSION: 1. The patient who has been currently noted with a spike of temperature with past Staphylococcus hominis bacteremia. 2. Evaluation of temperature is noted since the vancomycin has been discontinued. 3. Proteus mirabilis isolation from the lungs with bronchitis and/or pneumonia. 4. Hypernatremia. PLAN OF TREATMENT: The patient will be resumed on vancomycin again today. Monitor culture results. Repeat another blood culture set results. Assess an [place], [place] PROGRESS NOTE NAME: BRIANNA VERAS UNIT #: [id number] ROOM: 524 DOCTOR: MATEUS HERRERA MD BIRTHDATE: [birth year] echocardiogram to exclude any heart problems as well. The antibiotic to be given based on the current culture results of the sputum. Other additional treatment changes will be made based on progression of the illness or any other new data. The assessment and management was discussed with Dr. Karlee Arenas as well. MATEUS GUERRERO MD CM:PNTRANS [id number] MATEUS AN MD 08/27/18 0618 interface
--- NOTE | ~2018-08-18 | PR ---
[place], [place] PROGRESS NOTE NAME: BRIANNA VERAS UNIT #: [id number] ROOM: 524 DOCTOR: DEE HILLMAN MD BIRTHDATE: [birth year] DOS: 08/21/2018 SUBJECTIVE: The patient is awake, alert, unable to answer any questions or respond to any questions. OBJECTIVE: VITAL SIGNS: Blood pressure 106/81, heart rate of 100 beats per minute, breathing 18 times per minute, temperature 99.5 degrees Fahrenheit, going up to 100.5 degrees Fahrenheit. IMPRESSION: 1. Acute respiratory failure and pneumonia, being treated with antibiotics, bronchodilators. 2. Aspiration pneumonia in the patient with history of dysphagia and PEG tube feedings. 3. Quadriplegia and advanced disability related to severe head injury. We are taking bedsore and fall precautions. The patient is now being followed by Infectious Disease specialist and treated with IV cefepime and Tamiflu. Blood cultures turning positive for Staphylococcus hominis. The patient may require linezolid for treatment. We will consult with ID again on this. DEE HILLMAN MD CM:PNTRANS [id number] [id number] DEE HILLMAN MD 08/21/18 1153 interface
--- NOTE | ~2018-08-18 | WRIGHTHP ---
[place], [place] PATIENT HISTORY AND PHYSICAL EXAM NAME: BRIANNA VERAS [facility] #: [id number] UNIT #: [id number] ROOM: 524 DOCTOR: DEE HILLMAN MD BIRTHDATE: [birth year] DOS: 08/18/2018 HISTORY OF PRESENT ILLNESS: The patient is a 48-year-old gentleman with a past medical history of: 1. Quadriplegia from advanced traumatic brain injury along with dysphagia and PEG tube placement. 2. PEG tube placement for nutrition. 3. Advance disability and adult failure to thrive. 4. Generalized seizure disorder. 5. Benign essential hypertension. 6. Gastroesophageal reflux disease and esophagitis. 7. Benign essential hypertension. 8. Hypothyroidism. The patient presented to [facility] Emergency Department and was seen by Dr. Leslie for increased shortness of breath, wheezing, chest congestion. Chest x-ray did not show any pneumonia, but the patient was found to be septic with fever up to 101.8 degrees Fahrenheit, tachycardia to heart rate of 141 beats per minute, breathing up to 29 times per minute. White cell count elevated to 17,600. The patient was admitted for further management and started on treatment with antibiotics and DuoNeb. The patient appears to be more comfortable now. REVIEW OF SYSTEMS: RESPIRATORY: No increasing shortness of breath. GASTROINTESTINAL: No nausea, vomiting, diarrhea, constipation. CARDIOVASCULAR: No chest pains or palpitations. HOME MEDICATIONS: The patient is on Protonix, albuterol, vitamin C, cefuroxime, folic acid, Keppra, levothyroxine, metoprolol, phenytoin, risperidone, primidone, potassium, Dilantin, metoprolol, levothyroxine, sennoside, Carafate, Tylenol, baclofen, furosemide and Exelon. PHYSICAL EXAMINATION: GENERAL: Alert, awake and able to communicate, in no visible distress. VITAL SIGNS: Blood pressure 116/69, heart rate of 97 beats per minute, afebrile, breathing 17 times per minute. HEENT AND NECK: Extraocular movements are intact. Sclerae are anicteric. Oral mucosa is moist and clean. No obvious facial weakness. Neck is supple without any lymphadenopathy. No thyromegaly. No JVD. No carotid arterial bruits. LUNGS: Clear to auscultation. No wheezing. No rhonchi. CARDIOVASCULAR SYSTEM: Heart rate is regular in rate and rhythm. S1 and S2 normally audible. No significant murmur or any other abnormal cardiac sounds. ABDOMEN: Soft, nontender. No obvious organomegaly. Bowel sounds are present. No obvious herniation. The patient with quadriplegia, contractures of all four extremities and PEG tube in place for feeding. IMPRESSION: 1. The patient with signs of sepsis with tachycardia, fever, leukocytosis. The [place], [place] PATIENT HISTORY AND PHYSICAL EXAM [id number] #: [id number] ROOM: 524 DOCTOR: DEE HILLMAN MD BIRTHDATE: [birth year] patient admitted and being treated with antibiotic. Presently, the patient is on clindamycin, antibiotic for treatment and reel operator, Dr. Posey has been consulted for help with management and for critical care. 2. Generalized seizure disorder treated and asymptomatic with Keppra and Dilantin. 3. The patient has severe traumatic brain injury and quadriplegia with contractures of all 4 extremities. He will take bedsore precautions and use air mattress. 4. Deep venous thrombosis prophylaxis with Lovenox. 5. PEG tube placement for nutrition. The patient has dysphagia and cannot swallow. PEG tube feedings were continued. 6. Hypothyroidism, replaced with thyroid supplements. 7. Acute exacerbation of asthma being treated with DuoNebs and bronchodilators along with antibiotic along with sepsis. DEE HILLMAN MD CM:HISPHYS:PATIENT HISTORY AND PHYSICAL EXAMINATION [id number] DEE HILLMAN MD 08/18/18 180 interface
--- NOTE | ~2018-08-18 | PR ---
[place], [place] PROGRESS NOTE NAME: BRIANNA VERAS [facility] #: [id number] UNIT #: [id number] ROOM: 524 DOCTOR: CARLITA ESTEVEZ,BABATUNDE BIRTHDATE: [birth year] DOS: 08/24/2018 ADDENDUM This is an addendum to the progress note done by the nurse practitioner, Alena Maldonado, on 08/24/2018. I agree with the assessment and plan made by the nurse practitioner, Alena Maldonado. I reviewed the labs and imaging, made the necessary changes in the note. Babatunde Zazueta MD CM:PNTRANS [phone] BABATUNDE ZAZUETA MD 09/13/18 1822 interface
--- NOTE | ~2018-08-18 | PR ---
[place], [place] PROGRESS NOTE NAME: BRIANNA VERAS UNIT #: [id number] ROOM: 524 DOCTOR: DEE HILLMAN MD BIRTHDATE: [birth year] DOS: 08/22/2018 SUBJECTIVE: The patient is confused, unable to communicate. OBJECTIVE: VITAL SIGNS: Blood pressure 141/87, heart rate of 97 beats per minute, afebrile, but temperature is running between 98.4 now going up to 100.7 degrees Fahrenheit, blood pressure 141/87, pulse ox of 99%. GENERAL APPEARANCE: The patient is alert and oriented x 3, in no visible distress. HEENT AND NECK: Exam within normal limits. CARDIOVASCULAR SYSTEM: Heart rate is regular in rate and rhythm. S1 and S2 normally audible. LUNGS: Clear to auscultation. ABDOMEN: Soft, nontender. No obvious organomegaly. Bowel sounds are present. EXTREMITIES: Quadriplegia. Without significant cyanosis or edema. SKIN: The patient has some petechiae on his back, possibly from straps of the Vane lift. No signs of any injuries. IMPRESSION: 1. Acute aspiration pneumonia with acute respiratory failure, being treated with antibiotics. 2. Staphylococcus hominis hominis positive blood cultures, to be treated by Infectious Disease specialist with antibiotics after discharge from the hospital. 3. Quadriplegia and advanced disability related to severe head injury. We are taking bedsore and fall precautions. 4. Outpatient antibiotic dalbavancin single dose to be arranged. DEE HILLMAN MD CM:PNTRANS [phone] DEE HILLMAN MD 08/22/18 2346 interface
--- NOTE | ~2018-08-18 | PR ---
[place], [place] PROGRESS NOTE NAME: BRIANNA VERAS UNIT #: [id number] ROOM: 524 DOCTOR: CESAR AN MD,MATEUS BIRTHDATE: [birth year] DOS: 08/23/2018 SUBJECTIVE: He has been noted comfortable, awake and alert, using oxygen via nasal cannula. The oxygen requirement has been decreased 5 liter nasal cannula for the patient as well. He does not have verbal communication. PHYSICAL EXAMINATION: VITAL SIGNS: Temperature noted yesterday afternoon 100.7 degree Fahrenheit, otherwise noted normal this morning, respirations 18, heart rate 102, blood pressure 120/65. Pulse ox saturation on 5 liter nasal cannula was 93% saturation. HEENT: No acute change. NECK: Supple. CARDIOVASCULAR: S1, S2 is audible. LUNGS: Without any wheeze or crackles. ABDOMEN: Soft, nontender. Bowel sounds present. LABORATORY DATA: The patient's respiratory virus panel noted positive for rhinovirus. Blood culture, no bacterial growth to 27. Culture of the nasotracheal aspirate no bacterial growth, preliminary. IMPRESSION: 1. The patient with noted resolving pneumonia, clinically and radiologically. 2. Rhinovirus infection as well with possible bronchitis. 3. Possible contamination with the current blood culture, which has all noted as Staph hominis. PLAN OF MANAGEMENT: No change in pulmonary standpoint, antibiotic adjustment by the infectious disease specialist. The patient has been started on cephalosporins orally. Discharge planning for the patient remains afebrile back to the nursing facility. MATEUS GUERRERO MD CM:PNTRANS [id number] [id number] MATEUS AN MD 08/23/18 7185 interface
--- NOTE | ~2018-08-18 | PR ---
[place], [place] PROGRESS NOTE NAME: BRIANNA VERAS UNIT #: [id number] ROOM: 524 DOCTOR: CESAR AN MD,MATEUS BIRTHDATE: [birth year] DOS: 08/27/2018 PULMONARY PROGRESS NOTE SUBJECTIVE: The patient remains comfortable at this time, noted awake and alert, using oxygen supplementation with the nasal cannula. He has not been noted with any hemodynamic instability. The oxygen supplementation was still continued with the nasal cannula and use of the BiPAP at nighttime. The oxygen requirement noted with 6 liters nasal cannula with 100% pulse oxygen saturation recorded. The patient is unable to give any history with neurologic problem. OBJECTIVE: VITAL SIGNS: Temperature noted only rectal temperature elevation at 101.9 degrees Fahrenheit, low-grade fever, otherwise normal temperature, respiratory rate ranged between 18-20, heart rate of 87-112, blood pressure 111/77 to 122/73. The pulse oxygen saturation was recorded as 97% saturation on 6 liters nasal cannula. HEENT: Moderate obesity. NECK: Supple. Old tracheostomy scar izzy on the anterior neck. CARDIOVASCULAR: S1 and S2 audible. LUNGS: Without any wheezes or crackles at the present time. ABDOMEN: Soft, nontender. Bowel sounds present. EXTREMITIES: Chronic finding with deformity secondary to previous traumatic injury and paraplegia. SKIN: No lesions or rashes. LABORATORY DATA: BUN and creatinine that was done this morning was noted with BUN of 18, creatinine normal. The blood culture which was done on 08/25/2018 so far showed no bacterial growth. IMPRESSION: 1. The patient with low-grade fever with Staphylococcus hominis bacteremia. 2. The patient with a traumatic brain injury and quadriplegia. 3. Acute pneumonia as well was suspected. 4. Urinary tract infection. PLAN OF MANAGEMENT: At this time, the temperature is currently noted to be improving with current antibiotic regimen. The patient will be getting a transesophageal echocardiogram as well, which is planned today. The patient is noted stable from pulmonary standpoint for the echocardiogram to be performed. The case was discussed with Dr. Cantu, tube man. Continue other therapy and plan of management without any other additional changes at this time unless dictated with the new culture results or other new information. [place], [place] PROGRESS NOTE NAME: BRIANNA VERAS UNIT #: [id number] ROOM: 524 DOCTOR: MATEUS HERRERA MD BIRTHDATE: [birth year] MATEUS GUERRERO MD CM:PNTRANS [phone] MATEUS AN MD 08/27/18 2323 interface
--- NOTE | ~2018-08-18 | PR ---
[place], [place] PROGRESS NOTE NAME: BRIANNA VERAS UNIT #: [id number] ROOM: 524 DOCTOR: RAFY ESTEVEZ,DEE Perkins BIRTHDATE: [birth year] DOS: 08/27/2018 SUBJECTIVE: The patient is doing about the same. OBJECTIVE: VITAL SIGNS: Blood pressure 135/90, heart rate 83 beats per minute, breathing 19 times per minute, afebrile, but temperature is going up to 102 degrees rectal which was yesterday. The patient with paraplegia, advanced brain injury and nonverbal on physical exam with PEG tube for feeding. IMPRESSION: 1. Staphylococcus hominis bacteremia, being followed by ID. 2. Aspiration pneumonia with recurrent fevers being treated with cefdinir. IV vancomycin was added because of continued spiking fevers. The patient is being followed by party plan salesperson, Dr. Posey. 3. Proteus mirabilis isolation from lungs and pneumonia. 4. Hypernatremia treated with IV fluids. 5. Advance disability. We are taking bedsore precautions. 6. Generalized anxiety and agitation controlled with hydroxyzine and Haldol as needed. 7. Generalized seizure disorder without any recent seizures with Dilantin and Keppra. DEE HILLMAN MD CM:PNTRANS [phone] DEE HILLMAN MD 08/28/18 0248 interface
--- NOTE | ~2018-08-18 | DS ---
[place], [place] DISCHARGE SUMMARY NAME: BRIANNA VERAS [facility] #: [id number] UNIT #: [id number] ROOM: 524 DOCTOR: DEE HILLMAN MD BIRTHDATE: [birth year] DOS: 08/30/2018 DISCHARGE DIAGNOSES: 1. Clostridium difficile colitis, acute, being treated with oral vancomycin for 2 more weeks. 2. Staphylococcus hominis hominis bacteremia with normal ELIAN. No signs of endocarditis. 3. Aspiration pneumonia. 4. Proteus mirabilis isolated from lung cultures, sputum cultures. 5. Advance adult failure to thrive and disability with history of severe head injury and brain damage. The patient is unable to communicate. 6. Generalized anxiety disorder, agitation. 7. Generalized seizure disorder, PEG tube placement for nutrition. 8. Quadriplegia and dysphagia, for which the patient is fed with PEG tube for nutrition. 9. Gastroesophageal reflux disease and esophagitis. 10. Benign essential hypertension. 11. Hypothyroidism. HOSPITAL COURSE: The patient was admitted to [facility] with increased shortness of breath, wheezing, chest congestion. Later on, the patient was found to have aspiration pneumonia and was treated for sepsis with a fever of 101.8 degrees Fahrenheit, tachycardia with a heart rate of 141 beats per minute, breathing as fast was 29 times per minute and white cell count elevated at 17,600. The patient was treated with antibiotics and consults were obtained with Dr. Posey, the financial planning analyst and infectious disease specialist, Dr. Posey. The [facility] to look for endocarditis when a ELIAN was performed, which was negative. Staphylococcus hominis hominis positive blood cultures treated appropriately with antibiotics. The patient was on cefdinir and has completed the course. Klebsiella pneumonia, positive sputum cultures treated appropriately. The patient with suspected C. diff colitis, for which he was treated with oral vancomycin, which will be continued for 2 more weeks at [facility] orally. Generalized seizure disorder, asymptomatic with Dilantin and Keppra combination, which was continued. Benign essential hypertension, treated and controlled. Blood pressures were monitored. Advanced disability and adult failure to thrive. We took bedsore precautions including every 2 hour turning air mattress was used and we took fall precautions. Advanced disability with severe head injury and the patient unable to communicate with quadriplegia and poor prognosis. Case was discussed with the [place], [place] DISCHARGE SUMMARY NAME: BRIANNA VERAS UNIT #: [id number] ROOM: 524 DOCTOR: RAFY ESTEVEZ,DEE Perkins BIRTHDATE: [birth year] patient's father in detail and he appeared to agree to a DNR comfort care code status, but the patient still maintains a DNR arrest code status because his father has not actually changed the code status so far. Gastroesophageal reflux disease and esophagitis, asymptomatic with Protonix. Acute exacerbation of asthma, treated with bronchodilators, antibiotics. The patient kept on deep vein thrombosis prophylaxis with Lovenox. Dysphagia. The patient is unable to swallow and was continued on PEG tube feedings. Aspiration pneumonia, treated with antibiotics appropriately and has resolved. Acute exacerbation of asthma, treated and resolved. The patient was breathing much better. No wheezing or shortness of breath anymore. Sepsis, tachycardia, fever, leukocytosis, all related to pneumonia has been treated and resolved. DISCHARGE MANAGEMENT: DuoNebs q.i.d. p.r.n. for shortness of breath, Protonix 40 mg daily, PEG tube feedings as before, hydroxyzine 50 mg q. 6 hours p.r.n. for anxiety and agitation, primidone 50 mg at bedtime, Lasix 40 mg a day, Dilantin 100 mg b.i.d., metoprolol 25 mg b.i.d., Keppra 100 mg b.i.d., Tylenol 1000 mg every 6 hours p.r.n. for pain and fever and oral vancomycin 250 mg q.i.d. for 2 weeks, then to be stopped. DEE HILLMAN MD CM:DISCHARG [id number] DEE HILLMAN MD 08/30/18 1438 interface
--- NOTE | ~2018-08-18 | PR ---
[place], [place] PROGRESS NOTE NAME: BRIANNA VERAS UNIT #: [id number] ROOM: 524 DOCTOR: CESAR AN MD,MATEUS BIRTHDATE: [birth year] DOS: 08/24/2018 SUBJECTIVE: The patient was noted comfortable at this time. Remains awake and alert. BiPAP use at nighttime, oxygen supplementation during the daytime. He had not been noted ongoing acute other complaints for the patient from a respiratory standpoint. A chest congestion, resolving. There were no signs of respiratory distress. The patient has been reported diarrhea yesterday. The workup was started. The stool for C. diff toxin was completed and had been noted negative. OBJECTIVE: VITAL SIGNS: For the patient, which have recorded showed normal temperature to 100.2 degrees Fahrenheit, respiratory rate 20, heart rate of 115-100, blood pressure 115/81. Pulse oxygen saturation on 6 liters canula 93% saturation. HEENT: Examination shows head was atraumatic. Eyes nonicterus. NECK: Supple. CARDIOVASCULAR: S1, S2 audible. LUNGS: The patient was noted without any wheeze or crackles at the present time. ABDOMEN: Soft, nontender. Bowel sounds present. IMPRESSION: Acute respiratory failure with acute aspiration pneumonia. Contamination of the blood, Staph hominis. PLAN OF MANAGEMENT: Further recommendation of the antibiotic per Infectious disease specialist. Monitor diarrhea. Low-grade fever was noted to be treated at this time, which continued to be monitored. Oxygen supplementation to be continued daytime and BiPAP at nighttime. MATEUS GUERRERO MD CM:PNTRANS [id number] MATUES AN MD 09/09/18 1006 interface
--- NOTE | ~2018-08-18 | PR ---
[place], [place] PROGRESS NOTE [id number] UN[facility] #: [id number] ROOM: 524 DOCTOR: DEE HILLMAN MD BIRTHDATE: [birth year] DOS: 08/20/2018 HISTORY OF PRESENT ILLNESS: The patient seems somewhat anxious. PHYSICAL EXAMINATION: GENERAL: Awake, alert, very anxious, unable to communicate and quadriplegic. IMPRESSION: 1. The patient with aspiration pneumonia, now being followed by Infectious Disease specialist and treated with cefepime and IV vancomycin. Sepsis and leukocytosis, improved. 2. Aspiration pneumonia, being treated with antibiotics as mentioned above. 3. For nutrition, the patient depends on PEG tube feedings. He has dysphagia and cannot swallow. 4. 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 The patient unable to communicate. We are taking bedsore precautions, turning him every 2 hours and using air mattress. 5. Generalized seizure disorder, asymptomatic with Keppra and Dilantin. 6. Hypothyroidism, treated with thyroid supplements. 7. Acute exacerbation of asthma, being treated with DuoNebs, bronchodilators and antibiotics. The patient's sepsis, tachycardia, leukocytosis and pneumonia clinically improving with treatment. Blood cultures positive for gram-positive cocci in pairs and clusters, one bottle. DEE HILLMAN MD CM:PNTRANS [id number] DEE HILLMAN MD 08/21/18 0440 interface
--- NOTE | ~2018-08-18 | PR ---
[place], [place] PROGRESS NOTE NAME: BRIANNA VERAS UNIT #: [id number] ROOM: 524 DOCTOR: RAFY ESTEVEZ,DEE Perkins BIRTHDATE: [birth year] DOS: 08/23/2018 The patient acute dark colored diarrhea observed this morning. Blood pressure 128/65, heart rate of 102 beats per minute, breathing normally, afebrile. The patient with quadriplegia, advanced brain injury, mental confusion, unable to answer questions. Blood cultures have been negative. CBC shows leukocytosis with white cell count of 13,700. Normal serum electrolytes. IMPRESSION: 1. The patient with acute aspiration pneumonia, being followed and treated by Pulmonary. The patient remains on cefdinir. 2. Staphylococcus hominis positive blood cultures to be treated as recommended by Infectious Disease specialist with dalbavancin one dose to be arranged as an outpatient. 3. Quadriplegia advanced disability, severe head injury. We are taking bedsore and fall precautions. The patient's acute dark colored diarrhea to be checked for C. diff colitis and blood counts and electrolytes to be repeated tomorrow. DEE HILLMAN MD CM:PNTRANS [id number] DEE HILLMAN MD 08/24/18 0915 interface
--- NOTE | ~2018-08-18 | PR ---
[place], [place] PROGRESS NOTE NAME: BRIANNA VERAS UNIT #: [id number] ROOM: 524 DOCTOR: CESAR AN MD,MATEUS BIRTHDATE: [birth year] DOS: 08/21/2018 SUBJECTIVE: The patient was noted comfortable at this time without any acute distress. He has not been reported any symptoms of fever or chills, coughing or any sputum expectoration. He has been noted comfortable to be awake. The oxygen supplementation was continued, intermittent use of the BiPAP. The patient is nonverbal because of the chronic neurologic injury, traumatic brain injury. However, he does move his head when he was asked questions and moves his right upper extremity as well. REVIEW OF SYSTEMS: Could not be completed because of current neurologic problems. OBJECTIVE: VITAL SIGNS: Blood pressure 132/78 to 106/81. The temperature max was noted 100.5 degree Fahrenheit. Respiratory rate range between 18-21. Heart rate 92-100. HEENT: Examination shows head was atraumatic. Eyes nonicterus. NECK: Supple. CARDIOVASCULAR: S1, S2 is audible. LUNGS: The patient was noted with decreased breath sounds in the lungs were noted bilaterally. ABDOMEN: Soft, nontender. Bowel sounds present. EXTREMITIES: Mild edema. VISIBLE SKIN: No lesions or rashes. MUSCULOSKELETAL: Without any acute gross visible deformity. CENTRAL NERVOUS SYSTEM: Traumatic brain injury as well. IMPRESSION: 1. The patient with acute aspiration pneumonia with respiratory failure. The patient currently responding to the treatment at this time. Adjust the antibiotics were done by the Infectious disease specialist. 2. Gram-positive cocci bacteremia, Staph hominis isolation possibility of contamination. 3. Chronic traumatic brain injury with neurologic dysphagia. 4. Gram-positive bacteremia, Staph hominis possible contamination. PLAN OF MANAGEMENT: Follow the recommendation of antibiotic by the Infectious Disease Specialist. From pulmonary standpoint, the patient will be improved with respiratory failure. Continue to use the BiPAP with intermittent use of oxygen. Other therapy, plan of management. Obtain a chest x-ray to reassess the progression of the pulmonary infiltration in the right upper lobe and consolidation. Titrate oxygen supplementation to maintain pulse ox saturation 92% or greater. [place], [place] PROGRESS NOTE NAME: BRIANNA VERAS UNIT #: [id number] ROOM: 524 DOCTOR: MATEUS HERRERA MD BIRTHDATE: [birth year] MATEUS GUERRERO MD CM:[id number] MATEUS AN MD 08/21/18 1219 interface
[~2018-08-18 03:07] MED LIST changes: +AMINOPHYLLIN200 MG PO; +Carafate1 GM/10 ML PEG; +KLOR-CON 1010 ME1 PEG; +LEVAQUIN500 M2 PO; +Lopressor25 MG PEG; -Lopressor25 MG PO; +Mysoline50 MG PEG; -Mysoline50 MG PO; +NATURE'S BLEND F1 MG PEG; -NATURE'S BLEND F1 MG PO; +PROTONIX40 M2 GT; +RISPERDAL2 M1 PEG; -RISPERDAL2 M1 PO; -SYNTHROID0.025 MG PO; +SYNTHROID25 MCG PEG; +TOPICORT 0.25%15 GM T; +VITAMIN C500 M8 PEG; -VITAMIN C500 M8 PO; +ZINC SULFATE220 MG PEG
[2018-08-18 03:51] LABS: BILIRUBIN NEGATIVE (NEGATIVE); BLOOD TRACE-INTACT (NEGATIVE); CLARITY CLEAR (CLEAR); COLOR YELLOW (YELLOW); GLUCOSE NEGATIVE (NEGATIVE); KETONE NEGATIVE (NEGATIVE); LEUKO ESTERASE NEGATIVE (NEGATIVE); NITRITE NEGATIVE (NEGATIVE); PH 5.5 (5.0-9.0); SPECIFIC GRAVITY <= 1.005 (1.005-1.030); UROBILINOGEN 0.2 E.U./dl (0.2-1.0)
[2018-08-18 03:59] LABS: BASO % 0.2 % (0.0-1.0); EOS % 0.1 % (1.0-4.0); HEMATOCRIT 46.3 % (42.0-52.0); HEMOGLOBIN 15.9 g/dl (14.0-18.0); LYMPH # 0.9 10*3/uL (1.3-4.4); MEAN CELL VOLUME 93.5 fl (80.0-94.0); MEAN CORPUSCULAR HGB 32.1 pg (27.0-31.0); MEAN CORPUSCULAR HGB CONC 34.3 g/dl (33.0-37.0); MEAN PLATELET VOLUME 10.8 fl (9.6-12.3); MONO # 1.4 10*3/uL (0.1-1.0); MONO % 7.7 % (3.0-9.0); NEUT # 15.2 10*3/uL (2.3-7.9); NEUT % 86.6 % (47.0-73.0); PLATELET COUNT AUTOMATED 200 10*3/uL (130-400); RED BLOOD COUNT 4.95 10*6/uL (4.50-5.90); RED CELL DISTRI WIDTH 12.4 % (0-14.5); WHITE BLOOD COUNT 17.6 10*3/uL (4.8-10.8)
[2018-08-18] MEDS ORDERED: KEPPRA100 MG/1 M PEG (03:59)
[2018-08-18 04:01] LABS: BACTERIA TRACE; WBC 0-2 wbc/hpf (0-5)
[2018-08-18 04:09] LABS: ABG BASE EXCESS 5.7 mmol/L (-2.0-2.0); ABG HCO3 30.3 mmol/l (22-26); ABG O2 SATURATION 98.9 % (95-97); ARTERIAL BLOOD GAS PCO2 44.5 mmHg (35-45); ARTERIAL BLOOD GAS PH 7.446 (7.35-7.45)
[2018-08-18] MEDS ORDERED: CEFUROXIME AXE250 MG PEG (04:10)
[2018-08-18 04:15] LABS: ALBUMIN 3.1 gm/dl (3.1-4.5); ALKALINE PHOSPHATASE 138 U/L (45-117); BUN 12 mg/dl (7-24); CHLORIDE 98 mmol/L (98-107); CREATININE 0.66 mg/dL (0.70-1.30); LIPASE 74 U/L (73-393); POTASSIUM 3.5 mmol/L (3.5-5.1); SGOT/AST 19 IU/L (3-35); SGPT/ALT 28 U/L (12-78); SODIUM 137 mmol/L (136-145); TOTAL PROTEIN 8.1 gm/dL (6.4-8.2)
[2018-08-18 04:16] LABS: TROPONIN I < 0.015 ng/ml (<0.045)
[2018-08-18] MEDS ORDERED: FUROSEMIDE20 M1 PO (06:25)
[2018-08-19] VITALS (7 sets, daily range): BP systolic 97–120; BP diastolic 60–80
[2018-08-20] VITALS: BP 122/44
[2018-08-20 11:36] LABS: HEMATOCRIT 38.9 % (42.0-52.0); HEMOGLOBIN 13.1 g/dl (14.0-18.0); MEAN CELL VOLUME 95.1 fl (80.0-94.0); MEAN CORPUSCULAR HGB CONC 33.7 g/dl (33.0-37.0); MEAN PLATELET VOLUME 10.7 fl (9.6-12.3); PLATELET COUNT AUTOMATED 173 10*3/uL (130-400); RED BLOOD COUNT 4.09 10*6/uL (4.50-5.90); RED CELL DISTRI WIDTH 12.6 % (0-14.5); WHITE BLOOD COUNT 5.2 10*3/uL (4.8-10.8)
[2018-08-20 11:55] LABS: PLATELET SUFFICIENCY NORMAL (NORMAL); TOTAL CELLS COUNTED 100 #CELLS
[2018-08-20 12:00] VITALS: BP 132/59
[2018-08-20 12:03] LABS: ALBUMIN 2.5 gm/dl (3.1-4.5); ALKALINE PHOSPHATASE 90 U/L (45-117); BUN 11 mg/dl (7-24); CHLORIDE 108 mmol/L (98-107); CREATININE 0.45 mg/dL (0.70-1.30); POTASSIUM 3.8 mmol/L (3.5-5.1); SGOT/AST 14 IU/L (3-35); SGPT/ALT 24 U/L (12-78); SODIUM 144 mmol/L (136-145); TOTAL PROTEIN 6.9 gm/dL (6.4-8.2)
[2018-08-20 16:00] VITALS: BP 146/98
[2018-08-20 20:00] VITALS: BP 94/51
[2018-08-20 21:15] VITALS: BP 132/78
[2018-08-21] VITALS: BP 106/81
[2018-08-21 16:00] VITALS: BP 109/71
[2018-08-21 20:00] VITALS: BP 138/50
[2018-08-22] VITALS: BP 138/48
[2018-08-22 04:09] LABS: ADENOVIRUS Positive (Negative); INFLUENZA A Negative (Negative); INFLUENZA B Negative (Negative); METAPNEUMOVIRUS Negative (Negative); PARAINFLUENZA 1 Negative (Negative); PARAINFLUENZA 2 Negative (Negative); PARAINFLUENZA 3 Negative (Negative); RHINOVIRUS Negative (Negative); RSV A Negative (Negative); RSV B Negative (Negative)
[2018-08-22 08:00] VITALS: BP 130/90
[2018-08-22 12:00] VITALS: BP 141/87
[2018-08-22 16:00] VITALS: BP 121/76
[2018-08-22 20:00] VITALS: BP 120/78
[2018-08-23] VITALS: BP 115/58
[2018-08-23 06:13] LABS: ADENOVIRUS Positive (Negative); INFLUENZA A Negative (Negative); INFLUENZA B Negative (Negative); METAPNEUMOVIRUS Negative (Negative); PARAINFLUENZA 1 Negative (Negative); PARAINFLUENZA 2 Negative (Negative); PARAINFLUENZA 3 Negative (Negative); RHINOVIRUS Negative (Negative); RSV A Negative (Negative); RSV B Negative (Negative)
[2018-08-23 06:32] LABS: BUN 19 mg/dl (7-24); CHLORIDE 105 mmol/L (98-107); POTASSIUM 4.2 mmol/L (3.5-5.1); SODIUM 144 mmol/L (136-145)
[2018-08-23 06:42] LABS: BASO % 0.2 % (0.0-1.0); EOS # 0.1 10*3/uL (0.0-0.4); HEMATOCRIT 42.5 % (42.0-52.0); HEMOGLOBIN 13.5 g/dl (14.0-18.0); LYMPH # 1.6 10*3/uL (1.3-4.4); LYMPH % 11.6 % (27.0-41.0); MEAN CELL VOLUME 97.9 fl (80.0-94.0); MEAN CORPUSCULAR HGB 31.1 pg (27.0-31.0); MEAN CORPUSCULAR HGB CONC 31.8 g/dl (33.0-37.0); MEAN PLATELET VOLUME 10.8 fl (9.6-12.3); MONO # 0.7 10*3/uL (0.1-1.0); NEUT # 11.2 10*3/uL (2.3-7.9); NEUT % 81.8 % (47.0-73.0); PLATELET COUNT AUTOMATED 187 10*3/uL (130-400); RED BLOOD COUNT 4.34 10*6/uL (4.50-5.90); WHITE BLOOD COUNT 13.7 10*3/uL (4.8-10.8)
[2018-08-23 08:00] VITALS: BP 128/65
[2018-08-23 12:00] VITALS: BP 138/91
[2018-08-23 16:00] VITALS: BP 129/93
[2018-08-23 20:00] VITALS: BP 126/76
[2018-08-24 07:17] LABS: BASO # 0.1 10*3/uL (0.0-0.1); BASO % 0.5 % (0.0-1.0); EOS # 0.2 10*3/uL (0.0-0.4); EOS % 1.7 % (1.0-4.0); HEMATOCRIT 46.6 % (42.0-52.0); HEMOGLOBIN 14.6 g/dl (14.0-18.0); LYMPH % 20.7 % (27.0-41.0); MEAN CELL VOLUME 99.1 fl (80.0-94.0); MEAN CORPUSCULAR HGB 31.1 pg (27.0-31.0); MEAN CORPUSCULAR HGB CONC 31.3 g/dl (33.0-37.0); MEAN PLATELET VOLUME 10.9 fl (9.6-12.3); MONO # 0.6 10*3/uL (0.1-1.0); MONO % 6.6 % (3.0-9.0); NEUT # 6.6 10*3/uL (2.3-7.9); NEUT % 70.2 % (47.0-73.0); PLATELET COUNT AUTOMATED 216 10*3/uL (130-400); RED CELL DISTRI WIDTH 12.3 % (0-14.5); WHITE BLOOD COUNT 9.4 10*3/uL (4.8-10.8)
[2018-08-24 07:44] LABS: BUN 17 mg/dl (7-24); CHLORIDE 109 mmol/L (98-107); CREATININE 0.64 mg/dL (0.70-1.30); POTASSIUM 4.6 mmol/L (3.5-5.1); SODIUM 145 mmol/L (136-145)
[2018-08-24 08:00] VITALS: BP 115/81
[2018-08-24 16:00] VITALS: BP 105/61
[2018-08-24 20:00] VITALS: BP 124/81
[2018-08-25] VITALS: BP 137/95
[2018-08-25 07:12] LABS: BASO # 0.1 10*3/uL (0.0-0.1); BASO % 0.4 % (0.0-1.0); EOS # 0.1 10*3/uL (0.0-0.4); EOS % 0.6 % (1.0-4.0); HEMATOCRIT 51.3 % (42.0-52.0); HEMOGLOBIN 15.7 g/dl (14.0-18.0); LYMPH # 3.1 10*3/uL (1.3-4.4); LYMPH % 25.3 % (27.0-41.0); MEAN CORPUSCULAR HGB 30.6 pg (27.0-31.0); MEAN CORPUSCULAR HGB CONC 30.6 g/dl (33.0-37.0); MEAN PLATELET VOLUME 11.3 fl (9.6-12.3); MONO # 1.3 10*3/uL (0.1-1.0); MONO % 10.8 % (3.0-9.0); NEUT # 7.6 10*3/uL (2.3-7.9); NEUT % 62.5 % (47.0-73.0); PLATELET COUNT AUTOMATED 254 10*3/uL (130-400); RED BLOOD COUNT 5.13 10*6/uL (4.50-5.90); RED CELL DISTRI WIDTH 12.4 % (0-14.5); WHITE BLOOD COUNT 12.2 10*3/uL (4.8-10.8)
[2018-08-25 07:46] LABS: BUN 23 mg/dl (7-24); CHLORIDE 113 mmol/L (98-107); POTASSIUM 4.3 mmol/L (3.5-5.1); SODIUM 154 mmol/L (136-145)
[2018-08-25 07:48] LABS: CREATININE 0.72 mg/dL (0.70-1.30)
[2018-08-25 08:00] VITALS: BP 133/87
[2018-08-25 12:00] VITALS: BP 138/92
[2018-08-25 16:00] VITALS: BP 130/88; BP 135/99
[2018-08-25 20:00] VITALS: BP 128/90
[2018-08-26] VITALS: BP 125/77
[2018-08-26 07:03] LABS: BUN 24 mg/dl (7-24); CHLORIDE 115 mmol/L (98-107); CREATININE 0.58 mg/dL (0.70-1.30); POTASSIUM 3.9 mmol/L (3.5-5.1); SODIUM 147 mmol/L (136-145)
[2018-08-26 07:24] LABS: BASO # 0.1 10*3/uL (0.0-0.1); BASO % 0.5 % (0.0-1.0); EOS # 0.2 10*3/uL (0.0-0.4); EOS % 2.1 % (1.0-4.0); HEMOGLOBIN 13.7 g/dl (14.0-18.0); LYMPH # 2.3 10*3/uL (1.3-4.4); LYMPH % 21.7 % (27.0-41.0); MEAN CELL VOLUME 99.8 fl (80.0-94.0); MEAN CORPUSCULAR HGB 30.6 pg (27.0-31.0); MEAN CORPUSCULAR HGB CONC 30.7 g/dl (33.0-37.0); MEAN PLATELET VOLUME 11.8 fl (9.6-12.3); MONO # 1.1 10*3/uL (0.1-1.0); NEUT # 6.9 10*3/uL (2.3-7.9); NEUT % 65.4 % (47.0-73.0); PLATELET COUNT AUTOMATED 211 10*3/uL (130-400); RED BLOOD COUNT 4.47 10*6/uL (4.50-5.90); RED CELL DISTRI WIDTH 12.4 % (0-14.5); WHITE BLOOD COUNT 10.5 10*3/uL (4.8-10.8)
[2018-08-26 07:28] LABS: HEMATOCRIT 44.6 % (42.0-52.0)
[2018-08-26 08:00] VITALS: BP 138/85
[2018-08-26 16:00] VITALS: BP 135/87
[2018-08-26 22:20] VITALS: BP 139/85
[2018-08-27] VITALS (7 sets, daily range): BP systolic 101–135; BP diastolic 66–90
[2018-08-27 06:44] LABS: BASO # 0.1 10*3/uL (0.0-0.1); BASO % 0.5 % (0.0-1.0); EOS # 0.3 10*3/uL (0.0-0.4); EOS % 3.2 % (1.0-4.0); HEMATOCRIT 42.1 % (42.0-52.0); HEMOGLOBIN 13.3 g/dl (14.0-18.0); LYMPH # 2.8 10*3/uL (1.3-4.4); LYMPH % 28.7 % (27.0-41.0); MEAN CELL VOLUME 99.1 fl (80.0-94.0); MEAN CORPUSCULAR HGB 31.3 pg (27.0-31.0); MEAN CORPUSCULAR HGB CONC 31.6 g/dl (33.0-37.0); MEAN PLATELET VOLUME 11.8 fl (9.6-12.3); MONO # 0.7 10*3/uL (0.1-1.0); MONO % 7.6 % (3.0-9.0); NEUT # 5.7 10*3/uL (2.3-7.9); NEUT % 59.7 % (47.0-73.0); PLATELET COUNT AUTOMATED 202 10*3/uL (130-400); RED BLOOD COUNT 4.25 10*6/uL (4.50-5.90); RED CELL DISTRI WIDTH 12.4 % (0-14.5); WHITE BLOOD COUNT 9.6 10*3/uL (4.8-10.8)
[2018-08-27 07:02] LABS: BUN 18 mg/dl (7-24)
[2018-08-28 09:11] VITALS: BP 118/72
[2018-08-28 16:00] VITALS: BP 104/63
[2018-08-28 20:00] VITALS: BP 119/57
[2018-08-29] VITALS: BP 109/63
[2018-08-29 08:00] VITALS: BP 100/69
[2018-08-29 12:00] VITALS: BP 124/61
[2018-08-29] MEDS ORDERED: VANCOMYCIN250 MG/2.5 PO (18:27)
[2018-08-29 20:00] VITALS: BP 147/91
[2018-08-30] VITALS: BP 129/67
[2018-08-30 07:00] LABS: BASO % 0.4 % (0.0-1.0); EOS # 0.1 10*3/uL (0.0-0.4); EOS % 1.3 % (1.0-4.0); HEMATOCRIT 40.7 % (42.0-52.0); HEMOGLOBIN 13.3 g/dl (14.0-18.0); LYMPH # 1.7 10*3/uL (1.3-4.4); LYMPH % 15.1 % (27.0-41.0); MEAN CELL VOLUME 96.2 fl (80.0-94.0); MEAN CORPUSCULAR HGB 31.4 pg (27.0-31.0); MEAN CORPUSCULAR HGB CONC 32.7 g/dl (33.0-37.0); MEAN PLATELET VOLUME 12.2 fl (9.6-12.3); MONO # 0.7 10*3/uL (0.1-1.0); MONO % 6.4 % (3.0-9.0); NEUT # 8.6 10*3/uL (2.3-7.9); NEUT % 76.4 % (47.0-73.0); PLATELET COUNT AUTOMATED 261 10*3/uL (130-400); RED BLOOD COUNT 4.23 10*6/uL (4.50-5.90); RED CELL DISTRI WIDTH 12.4 % (0-14.5); WHITE BLOOD COUNT 11.2 10*3/uL (4.8-10.8)
[2018-08-30 07:20] LABS: BUN 14 mg/dl (7-24); CREATININE 0.53 mg/dL (0.70-1.30)
[2018-08-30 08:00] VITALS: BP 127/84
== END 2018-08-30 16:18 | DRG 871 ==
LOC: ED 03:07 → EDHOLD 05:02 → 5E 05:02
PROVIDERS: Emergency Medicine Emergency Medical Services; Student in an Organized Health Care Education/Training Program; ADMIT Internal Medicine
PROC: 5A09357 Assistance with Respiratory Ventilation, Less than 24 Consecutive Hours, Continuous Positive Airway Pressure (ICD-10-PCS; principal; 2018-08-20)
PROC: 5A09357 Assistance with Respiratory Ventilation, Less than 24 Consecutive Hours, Continuous Positive Airway Pressure (ICD-10-PCS; 2018-08-21)
DX: A41.9 Sepsis, unspecified organism (principal); J69.0 Pneumonitis due to inhalation of food and vomit; G82.50 Quadriplegia, unspecified; J96.01 Acute respiratory failure with hypoxia; J45.901 Unspecified asthma with (acute) exacerbation; A04.72 Enterocolitis due to Clostridium difficile, not specified as recurrent; E87.0 Hyperosmolality and hypernatremia; N39.0 Urinary tract infection, site not specified; R62.7 Adult failure to thrive; F41.1 Generalized anxiety disorder; E87.8 Other disorders of electrolyte and fluid balance, not elsewhere classified; E66.9 Obesity, unspecified; F09 Unspecified mental disorder due to known physiological condition; R13.19 Other dysphagia; B96.4 Proteus (mirabilis) (morganii) as the cause of diseases classified elsewhere; Z66 Do not resuscitate; K21.0 Gastro-esophageal reflux disease with esophagitis; G40.409 Other generalized epilepsy and epileptic syndromes, not intractable, without status epilepticus; I10 Essential (primary) hypertension; E03.9 Hypothyroidism, unspecified; Z86.69 Personal history of other diseases of the nervous system and sense organs; Z93.1 Gastrostomy status; Z86.718 Personal history of other venous thrombosis and embolism; Z88.8 Allergy status to other drugs, medicaments and biological substances; Z88.0 Allergy status to penicillin; Z88.2 Allergy status to sulfonamides; Z88.1 Allergy status to other antibiotic agents; Z87.440 Personal history of urinary (tract) infections; Z98.52 Vasectomy status; Z87.891 Personal history of nicotine dependence; Z83.6 Family history of other diseases of the respiratory system; Z79.899 Other long term (current) drug therapy; Z68.31 Body mass index [BMI] 31.0-31.9, adult

== ENCOUNTER 2020-12-08 21:56 | Emergency (ER) | payer MEDICARE, OTHER ==
[~2020-12-08 21:56] MED LIST changes: +CEFUROXIME AXE250 MG PEG; +FUROSEMIDE20 M1 PO; +KEPPRA100 MG/1 M PEG; +VANCOMYCIN250 MG/2.5 PO
[2020-12-08 21:58] VITALS: BP 118/82
== END 2020-12-09 01:11 ==
LOC: ED 21:56
DX: K94.23 Gastrostomy malfunction (principal); I10 Essential (primary) hypertension; E03.9 Hypothyroidism, unspecified; Z88.2 Allergy status to sulfonamides; Z88.8 Allergy status to other drugs, medicaments and biological substances; Z88.0 Allergy status to penicillin; Z79.899 Other long term (current) drug therapy; Z98.890 Other specified postprocedural states

== ENCOUNTER 2023-12-12 06:06 | Emergency (ER) | payer MEDICARE, OTHER ==
[~2023-12-12] VITALS: Wt 106.6 kg
[~2023-12-12 06:06] MED LIST changes: +APAP325 MG PEG; +BACLOFEN5 MG PEG; +CLONAZEPAM0.5 M2 GT; +DEPAKOTE SPRIN125 MG GT; +Ipratropium Brom3 ML INH; +LASIX40 MG PEG; -LASIX40 MG PO; -LIORESAL10 MG PO; +MILK OF MA400 MG/52 PEG; +NAMENDA10 MG PEG; +POTASSIUM CHLO20 ME3 PEG; +PREDNISONE5 MG PO; +RIVASTIGMINE TAR6 M1 GT; +TOPCARE OMEPRAZ20 MG PO; +VANCO 1.251.25 GM/25 IV; +VIBRAMYCIN100 MG PO; +XANAX2 M1 PEG
[2023-12-12 06:08] VITALS: BP 112/56
== END 2023-12-12 10:18 ==
LOC: ED 06:06
DX: S00.93XA Contusion of unspecified part of head, initial encounter (principal); Z88.8 Allergy status to other drugs, medicaments and biological substances; Z88.0 Allergy status to penicillin; Z88.2 Allergy status to sulfonamides; Z88.1 Allergy status to other antibiotic agents; Z79.2 Long term (current) use of antibiotics; Z79.899 Other long term (current) drug therapy; Z87.820 Personal history of traumatic brain injury; Z98.890 Other specified postprocedural states; Z87.891 Personal history of nicotine dependence; W06.XXXA Fall from bed, initial encounter; Y93.89 Activity, other specified; Y92.128 Other place in nursing home as the place of occurrence of the external cause; Y99.8 Other external cause status

== ENCOUNTER 2024-06-10 19:25 | Inpatient (IN) | payer MEDICARE, OTHER ==
[~2024-06-10] VITALS: Ht 180.3 cm; Wt 113.4 kg
[2024-06-10 19:56] LABS: BASO % 0.2 % (0.0-1.0); EOS % 0.2 % (1.0-4.0); HEMATOCRIT 49.7 % (42.0-52.0); MEAN CELL VOLUME 99.8 fl (80.0-94.0); MEAN CORPUSCULAR HGB 32.3 pg (27.0-31.0); MEAN CORPUSCULAR HGB CONC 32.4 g/dl (33.0-37.0); MEAN PLATELET VOLUME 11.8 fl (9.6-12.3); MONO # 1.3 10*3/uL (0.1-1.0); MONO % 8.2 % (3.0-9.0); NEUT # 12.5 10*3/uL (2.3-7.9); NEUT % 81.8 % (47.0-73.0); PLATELET COUNT AUTOMATED 158 10*3/uL (130-400); RED BLOOD COUNT 4.98 10*6/uL (4.50-5.90); RED CELL DISTRI WIDTH 12.5 % (0-14.5); WHITE BLOOD COUNT 15.3 10*3/uL (4.8-10.8)
[2024-06-10 20:13] LABS: BUN 11 mg/dl (9-23); CHLORIDE 99 mmol/L (98-107); POTASSIUM 3.9 mmol/L (3.4-5.1)
[2024-06-10] MEDS ORDERED: SODIUM CHLORIDE 0.9% 1,000 ML IV SCH (20:30)
[2024-06-10] MEDS ORDERED: Ceftriaxone Sodium 1 GM/10 ML SYR IV ONE (20:30)
[2024-06-10] MEDS ORDERED: AZITHROMYCIN 250 ML IV ONE (20:30)
[2024-06-10] MEDS ORDERED: OMEPRAZOLE40 MG PEG (22:24)
[2024-06-11] VITALS (9 sets, daily range): BP systolic 100–124; BP diastolic 61–84
[2024-06-11] MEDS ORDERED: Metoprolol Tartrate 25 MG TAB PEG SCH (10:00)
[2024-06-11] MEDS ORDERED: clonAZEPAM 0.5 MG TAB GT SCH (10:00)
[2024-06-11] MEDS ORDERED: Magnesium Hydroxide 30 ML UDC PEG PRN (10:00)
[2024-06-11] MEDS ORDERED: LEVETIRACETAM 500 MG/5 ML UDC PEG SCH (10:00)
[2024-06-11] MEDS ORDERED: Memantine Hydrochloride 10 MG TAB PEG SCH (10:00)
[2024-06-11] MEDS ORDERED: FUROSEMIDE 40 MG TAB PEG SCH (10:00)
[2024-06-11] MEDS ORDERED: DIVALPROEX SODIUM 125 MG CAP PEG SCH (10:00)
[2024-06-11] MEDS ORDERED: Albuterol Sulf/Ipratropium 3 ML VIAL NEB PRN (10:05)
[2024-06-11] MEDS ORDERED: BACLOFEN 10 MG TAB PEG SCH (14:00)
[2024-06-11] MEDS ORDERED: VANCOMYCIN/WATER FOR INJ (PEG) 250 ML IV SCH (16:00)
[2024-06-11] MEDS ORDERED: AZITHROMYCIN 250 ML IV SCH (18:00)
[2024-06-11] MEDS ORDERED: FOAM BANDAGE 1 EACH BANDAGE T ONE (20:19)
[2024-06-11] MEDS ORDERED: FOAM BANDAGE 5X5 T ONE (20:19)
[2024-06-11] MEDS ORDERED: HYDROGEL WOUND DRESSING T ONE (20:19)
[2024-06-11] MEDS ORDERED: HEEL PROTECTOR DEVICE ONE (20:19)
[2024-06-11] MEDS ORDERED: FOAM BANDAGE HEEL T ONE (20:19)
[2024-06-11] MEDS ORDERED: PRIMIDONE 50 MG TAB PEG SCH (22:00)
[2024-06-11] MEDS ORDERED: Levothyroxine Sodium 25 MCG TAB PEG SCH (22:00)
[2024-06-11] MEDS ORDERED: POTASSIUM CHLORIDE 20 MEQ TAB PEG SCH (22:00)
[2024-06-12] VITALS: BP 91/65
[2024-06-12 04:23] LABS: BASO % 0.3 % (0.0-1.0); EOS # 0.1 10*3/uL (0.0-0.4); EOS % 1.7 % (1.0-4.0); HEMATOCRIT 45.4 % (42.0-52.0); MEAN CELL VOLUME 101.6 fl (80.0-94.0); MEAN CORPUSCULAR HGB 32.9 pg (27.0-31.0); MEAN CORPUSCULAR HGB CONC 32.4 g/dl (33.0-37.0); MONO # 0.9 10*3/uL (0.1-1.0); MONO % 12.9 % (3.0-9.0); NEUT # 4.9 10*3/uL (2.3-7.9); NEUT % 69.5 % (47.0-73.0); PLATELET COUNT AUTOMATED 127 10*3/uL (130-400); RED BLOOD COUNT 4.47 10*6/uL (4.50-5.90); RED CELL DISTRI WIDTH 12.9 % (0-14.5)
[2024-06-12 04:46] LABS: BUN 10 mg/dl (9-23); CHLORIDE 106 mmol/L (98-107); POTASSIUM 4.2 mmol/L (3.4-5.1)
[2024-06-12 07:47] VITALS: BP 104/83
[2024-06-12] MEDS ORDERED: Pantoprazole Sodium 40 MG PKT GT SCH (10:00)
[2024-06-12 16:00] VITALS: BP 100/64
[2024-06-13] VITALS: BP 95/54
[2024-06-13 07:47] LABS: BASO % 0.5 % (0.0-1.0); EOS # 0.1 10*3/uL (0.0-0.4); EOS % 1.7 % (1.0-4.0); HEMATOCRIT 43.8 % (42.0-52.0); MEAN CELL VOLUME 99.8 fl (80.0-94.0); MEAN CORPUSCULAR HGB 32.3 pg (27.0-31.0); MEAN CORPUSCULAR HGB CONC 32.4 g/dl (33.0-37.0); MONO # 0.8 10*3/uL (0.1-1.0); MONO % 13.3 % (3.0-9.0); NEUT # 3.8 10*3/uL (2.3-7.9); RED BLOOD COUNT 4.39 10*6/uL (4.50-5.90); RED CELL DISTRI WIDTH 12.7 % (0-14.5); WHITE BLOOD COUNT 5.9 10*3/uL (4.8-10.8)
[2024-06-13 07:50] LABS: PLATELET COUNT AUTOMATED 133 10*3/uL (130-400)
[2024-06-13 07:56] LABS: BUN 9 mg/dl (9-23); CHLORIDE 105 mmol/L (98-107); POTASSIUM 4.1 mmol/L (3.4-5.1)
[2024-06-13 08:00] VITALS: BP 118/73
[2024-06-13 16:00] VITALS: BP 115/78
[2024-06-13] MEDS ORDERED: VANCOMYCIN/WATER FOR INJ (PEG) 300 ML IV SCH (18:00)
[2024-06-14] VITALS: BP 108/58
[2024-06-14 05:04] LABS: BUN 11 mg/dl (9-23); CHLORIDE 104 mmol/L (98-107); POTASSIUM 3.9 mmol/L (3.4-5.1)
[2024-06-14 06:36] LABS: BASO % 0.4 % (0.0-1.0); EOS # 0.1 10*3/uL (0.0-0.4); EOS % 1.4 % (1.0-4.0); HEMATOCRIT 45.6 % (42.0-52.0); MEAN CELL VOLUME 99.3 fl (80.0-94.0); MEAN CORPUSCULAR HGB 32.2 pg (27.0-31.0); MEAN CORPUSCULAR HGB CONC 32.5 g/dl (33.0-37.0); MEAN PLATELET VOLUME 12.2 fl (9.6-12.3); MONO # 0.9 10*3/uL (0.1-1.0); MONO % 12.2 % (3.0-9.0); NEUT # 4.3 10*3/uL (2.3-7.9); NEUT % 58.9 % (47.0-73.0); PLATELET COUNT AUTOMATED 144 10*3/uL (130-400); RED BLOOD COUNT 4.59 10*6/uL (4.50-5.90); RED CELL DISTRI WIDTH 12.8 % (0-14.5); WHITE BLOOD COUNT 7.2 10*3/uL (4.8-10.8)
[2024-06-14 08:00] VITALS: BP 90/42
[2024-06-14] MEDS ORDERED: CLEOCIN HCL300 MG PO (09:00)
== END 2024-06-14 15:15 | DRG 871 ==
LOC: ED 19:25 → ICCU 22:06 → EDHOLD 22:06 → ICCU 06-11 16:52
PROVIDERS: Internal Medicine; ADMIT Internal Medicine; ATTEND Internal Medicine
DX: A41.1 Sepsis due to other specified staphylococcus (principal); J69.0 Pneumonitis due to inhalation of food and vomit; J96.01 Acute respiratory failure with hypoxia; R65.20 Severe sepsis without septic shock; G40.909 Epilepsy, unspecified, not intractable, without status epilepticus; F41.1 Generalized anxiety disorder; E03.9 Hypothyroidism, unspecified; L89.322 Pressure ulcer of left buttock, stage 2; Z66 Do not resuscitate; E66.09 Other obesity due to excess calories; R62.7 Adult failure to thrive; R13.12 Dysphagia, oropharyngeal phase; Z88.0 Allergy status to penicillin; Z88.2 Allergy status to sulfonamides; Z88.1 Allergy status to other antibiotic agents; Z88.8 Allergy status to other drugs, medicaments and biological substances; Z79.899 Other long term (current) drug therapy; Z68.34 Body mass index [BMI] 34.0-34.9, adult; Z87.820 Personal history of traumatic brain injury; Z93.1 Gastrostomy status

== ENCOUNTER 2024-09-19 08:05 | Emergency (ER) | payer MEDICARE, OTHER ==
[~2024-09-19] VITALS: Ht 175.2 cm; Wt 109.8 kg
[~2024-09-19 08:05] MED LIST changes: +OMEPRAZOLE40 MG PEG
[2024-09-19] MEDS ORDERED: Albuterol Sulf/Ipratropium 3 ML VIAL NEB ONE (08:15)
[2024-09-19 08:17] VITALS: BP 121/75
[2024-09-19 08:32] LABS: BASO % 0.6 % (0.0-1.0); EOS # 0.1 10*3/uL (0.0-0.4); EOS % 0.8 % (1.0-4.0); HEMATOCRIT 47.9 % (42.0-52.0); MEAN CORPUSCULAR HGB 32.3 pg (27.0-31.0); MEAN PLATELET VOLUME 11.9 fl (9.6-12.3); MONO # 0.7 10*3/uL (0.1-1.0); MONO % 9.9 % (3.0-9.0); NEUT # 4.4 10*3/uL (2.3-7.9); NEUT % 61.7 % (47.0-73.0); PLATELET COUNT AUTOMATED 151 10*3/uL (130-400); RED BLOOD COUNT 4.89 10*6/uL (4.50-5.90); RED CELL DISTRI WIDTH 12.5 % (0-14.5); WHITE BLOOD COUNT 7.1 10*3/uL (4.8-10.8)
[2024-09-19 09:01] LABS: BUN 12 mg/dl (9-23); CHLORIDE 97 mmol/L (98-107); POTASSIUM 3.9 mmol/L (3.4-5.1)
[2024-09-19] MEDS ORDERED: AVPAK AZITHROM250 M1 PO (10:00)
[2024-09-19] MEDS ORDERED: Ipratropium Brom3 ML INH (10:00)
== END 2024-09-19 11:15 | disposition home or self-care (01) ==
LOC: ED 08:05
PROVIDERS: Emergency Medicine
DX: J18.9 Pneumonia, unspecified organism (principal); Z20.822 Contact with and (suspected) exposure to COVID-19; I10 Essential (primary) hypertension; E78.5 Hyperlipidemia, unspecified; F32.A Depression, unspecified; F41.9 Anxiety disorder, unspecified; Z87.820 Personal history of traumatic brain injury; Z88.8 Allergy status to other drugs, medicaments and biological substances; Z88.0 Allergy status to penicillin; Z88.2 Allergy status to sulfonamides; Z88.1 Allergy status to other antibiotic agents; Z88.7 Allergy status to serum and vaccine; Z79.899 Other long term (current) drug therapy; Z98.890 Other specified postprocedural states; Z87.891 Personal history of nicotine dependence

== ENCOUNTER 2024-10-01 02:49 | Emergency (ER) | payer MEDICARE, OTHER ==
[~2024-10-01] VITALS: Ht 170.1 cm; Wt 111.6 kg
[~2024-10-01 02:49] MED LIST changes: +AVPAK AZITHROM250 M1 PO
[2024-10-01 02:52] VITALS: BP 112/71
[2024-10-01 03:13] LABS: BASO % 0.6 % (0.0-1.0); EOS # 0.1 10*3/uL (0.0-0.4); EOS % 1.7 % (1.0-4.0); HEMATOCRIT 49.6 % (42.0-52.0); MEAN CELL VOLUME 98.8 fl (80.0-94.0); MEAN CORPUSCULAR HGB 32.9 pg (27.0-31.0); MEAN CORPUSCULAR HGB CONC 33.3 g/dl (33.0-37.0); MEAN PLATELET VOLUME 11.7 fl (9.6-12.3); MONO # 0.7 10*3/uL (0.1-1.0); MONO % 10.6 % (3.0-9.0); NEUT # 3.7 10*3/uL (2.3-7.9); NEUT % 55.7 % (47.0-73.0); PLATELET COUNT AUTOMATED 177 10*3/uL (130-400); RED BLOOD COUNT 5.02 10*6/uL (4.50-5.90); RED CELL DISTRI WIDTH 12.7 % (0-14.5); WHITE BLOOD COUNT 6.6 10*3/uL (4.8-10.8)
[2024-10-01] MEDS ORDERED: OMEPRAZOLE40 MG PO (03:28)
[2024-10-01] MEDS ORDERED: DEPAKOTE SPRIN125 MG PO (03:30)
[2024-10-01 03:32] LABS: BUN 13 mg/dl (9-23); CHLORIDE 101 mmol/L (98-107); POTASSIUM 4.1 mmol/L (3.4-5.1)
[2024-10-01 03:41] LABS: BILIRUBIN Negative (Negative); BLOOD 2+ (Negative); CLARITY Clear (Clear); COLOR Yellow (Yellow); GLUCOSE Negative (Negative); KETONE Negative (Negative); LEUKO ESTERASE Negative (Negative); NITRITE Negative (Negative); SPECIFIC GRAVITY <= 1.005 (1.001-1.030)
[2024-10-01 03:50] LABS: BACTERIA 1+; RBC 21-30 rbc/hpf (0-2)
== END 2024-10-01 07:50 ==
LOC: ED 02:49
PROVIDERS: Internal Medicine
DX: T83.098A Other mechanical complication of other urinary catheter, initial encounter (principal); D75.89 Other specified diseases of blood and blood-forming organs; E87.29 Other acidosis; F32.A Depression, unspecified; F41.9 Anxiety disorder, unspecified; K21.9 Gastro-esophageal reflux disease without esophagitis; Z79.899 Other long term (current) drug therapy; Z88.1 Allergy status to other antibiotic agents; Z88.0 Allergy status to penicillin; Z88.2 Allergy status to sulfonamides; Z90.89 Acquired absence of other organs; Y84.6 Urinary catheterization as the cause of abnormal reaction of the patient, or of later complication, without mention of misadventure at the time of the procedure

== ENCOUNTER 2025-05-13 22:21 | Emergency (ER) | payer MEDICARE, OTHER ==
[~2025-05-13] VITALS: Wt 110.6 kg
[~2025-05-13 22:21] MED LIST changes: +AZITHROMYCIN500 M2 PO; +DEPAKOTE SPRIN125 MG PO; +OMEPRAZOLE40 MG PO; +VALPROIC A250 MG/52 PO
[2025-05-13] MEDS ORDERED: Albuterol Sulf/Ipratropium 3 ML VIAL NEB ONE (22:25)
[2025-05-13 22:53] LABS: BASO # 0.0 10*3/uL (0.0-0.1); BASO % 0.3 % (0.0-1.0); EOS # 0.1 10*3/uL (0.0-0.4); EOS % 0.8 % (1.0-4.0); MEAN CELL VOLUME 101.3 fl (80.0-94.0); MEAN CORPUSCULAR HGB 33.2 pg (27.0-31.0); MEAN PLATELET VOLUME 11.5 fl (9.6-12.3); MONO # 0.8 10*3/uL (0.1-1.0); MONO % 8.2 % (3.0-9.0); NEUT # 6.9 10*3/uL (2.3-7.9); NEUT % 70.7 % (47.0-73.0); NUCLEATED RED BLOOD CELL 0.0 % (0.0-0.0); NUCLEATED RED BLOOD CELL 0.0 10*3/uL (0.0-0.0); PLATELET COUNT AUTOMATED 142 10*3/uL (130-400); RED CELL DISTRI WIDTH 12.5 % (0-14.5)
[2025-05-13 23:13] LABS: BUN 15 mg/dl (9-23)
[2025-05-14 02:13] VITALS: BP 99/60
== END 2025-05-14 03:55 ==
LOC: ED 22:21
PROVIDERS: Internal Medicine
DX: E87.29 Other acidosis (principal); D75.89 Other specified diseases of blood and blood-forming organs; Z88.8 Allergy status to other drugs, medicaments and biological substances; Z88.0 Allergy status to penicillin; Z88.2 Allergy status to sulfonamides; Z88.4 Allergy status to anesthetic agent; Z79.899 Other long term (current) drug therapy; Z98.890 Other specified postprocedural states; Z87.891 Personal history of nicotine dependence